=== PATIENT | female | born 1955 ===

== ENCOUNTER 2021-01-12 08:18 | Inpatient (IN) | payer MEDICARE, OTHER ==
[~2021-01-12] VITALS: Ht 157.5 cm; Wt 119.1 kg
[~2021-01-12 08:18] MED LIST: ALBU90OI6; ALBU90OI6 INH; AMLO5 PO; ASPI81CH PO; ATEN50 PO; Ativan0.5 MG SL; Ativan1 MG PO; BUDE6HFA INH; BUSP10; BUSP10 PO; CYCL10 PO; Cardizem CD 12120 MG PO; DILT120; DIPH50 PO; FURO40 PO; Flonase 0.05% N16 GM; Halcion0.25 MG PO; LAVAP17G PO; LEVFLO250 PO; LEVFLO500 PO; LEVSOD150 PO; LISI20; LISI20 PO; LISI5; MELA3 PO; METF500 PO; Metoprolol Tar100 MG PO; NIFE60ER; NIFE60ER PO; NITR.4SL PO; NITR.4SL SL; ONE DAILY FOR1 EAC3 PO; Oxybutynin Chlo10 MG PO; POTA10T PO; POTCHL20ER PO; SERT50; SUDAFED PE PRE1 EAC1; TIOT18; TIOT18 INH; VERA120ERB PO; ZESTORETIC 20-121 EA; Zestril40 MG PO
[2021-01-12 08:50] LABS: BASOPHILS ABSOLUTE AUTO 0.04 K/mm3 (0.00-0.23); BASOPHILS PERCENT AUTO 0 % (0-2); EOSINOPHILS ABSOLUTE AUTO 0.01 K/mm3 (0.00-0.68); EOSINOPHILS PERCENT AUTO 0 % (0-6); Hematocrit 37.7 % (33.0-51.0); Hemoglobin 11.3 g/dL (11.5-16.0); IMMATURE GRAN ABSOLUTE AUTO 0.06 K/mm3 (0.00-0.10); IMMATURE GRAN PERCENT AUTO 1 % (0-1); LYMPHOCYTES ABSOLUTE AUTO 1.39 K/mm3 (0.84-5.20); LYMPHOCYTES PERCENT AUTO 13 % (21-46); MONOCYTES ABSOLUTE AUTO 0.52 K/mm3 (0.16-1.47); MONOCYTES PERCENT AUTO 5 % (4-13); Mean Corpuscular HGB 27.6 pg (26.0-34.0); Mean Corpuscular Volume 92 fL (80-100); Mean Platelet Volume 10.2 fL (9.1-12.4); NEUTROPHILS ABSOLUTE AUTO 8.79 K/mm3 (1.96-9.15); NEUTROPHILS PERCENT AUTO 81 % (41-73); Platelet Count 213 K/mm3 (150-400); RDW Coefficient Variation 16.1 % (11.7-14.2); RDW Standard Deviation 54.4 fL (35.1-46.3); Red Blood Cell Count 4.09 M/mm3 (3.80-5.20); White Blood Cell Count 10.81 K/mm3 (4.00-11.30)
[2021-01-12 08:55] LABS: PO2 Arterial 62.5 mmHg (80-100); pH Blood Arterial 7.36 (7.35-7.45)
[2021-01-12 08:56] LABS: PCO2 Arterial 82.5 mmHg (35-45)
[2021-01-12 09:08] LABS: Alanine Aminotransfer (ALT/SGP 25 U/L (12-78); Albumin, Blood 2.9 g/dL (3.4-5.0); Albumin/Globulin Ratio 0.6 (0.8-1.8); Alk Phos 111 U/L (50-136); Anion Gap 2 mmol/L (6-16); Aspartate Aminotrans (AST/SGOT 19 U/L (12-37); Bilirubin, Total 0.6 mg/dL (0.1-1.0); Blood Urea Nitrogen 13 mg/dL (8-24); Bun/Creatinine Ratio 13.7 (12.0-20.0); CO2, Blood 43 mmol/L (21-32); Calcium, Blood 8.6 mg/dL (8.5-10.1); Chloride, Blood 96 mmol/L (98-108); Creatinine, Blood 0.95 mg/dL (0.40-1.00); Globulin, Blood 5.1 g/dL (2.2-4.0); Glomerular Filtration Rate 59 (60-); Glucose, Blood 159 mg/dL (70-99); Potassium, Blood 3.6 mmol/L (3.5-5.5); Sodium, Blood 141 mmol/L (136-145); Troponin I <0.015 ng/mL (0.000-0.040)
[2021-01-12 09:36] LABS: SARS-Cov-2 (COVID-19) PCR, MMC NEGATIVE (NEGATIVE)
--- NOTE | 2021-01-12 13:17 | NUR ---
PCU ADMIT PT BROUGHT TO PCU-04 BY ESTHER FROM ER @ [facility] 1200. PT A&O X4, SLID OVER FROM [facility] TO PCU BED BY 4 STAFF MEMBERS. PT VSS. SPO2 > 90% ON BIPAP: 09/09, FIO2 60%. RR 20's. MONITOR SHOWING SB, HR 50's. PT REPORTS CP @ HOME THIS AM, RESOLVED @ HOME AFTER 2 NITRO. PT DENIES FURTHER CP OR OTHER PAIN/DISCOMFORT. PT DOES REPORT LEFT FOOT NUMB D/T DIABETES. PT ALSO FURTHER REPORTS HAS NOT BEEN CHECKING BLOOD SUGARS AT HOME OR BEEN TAKING ANY DM MANAGAING MEDICATIONS FOR PAST 1.5 YRS D/T MD STOPPING MEDICATION. PT CBG STABLE ON ARRIVAL.
[2021-01-12 15:28] LABS: PO2 Arterial 69.8 mmHg (80-100); pH Blood Arterial 7.36 (7.35-7.45)
[2021-01-12 15:29] LABS: PCO2 Arterial 82.7 mmHg (35-45)
--- NOTE | 2021-01-12 18:01 | NUR ---
SHIFT SUMMARY PT A&O X4. VSS. MONITOR SHOWING SB, HR 45-50's. SPO2 > 90% ON BIPAP: 09/09, FIO2 60%, TITRATED TO 40% THIS SHIFT. RR 20's. ABG CO2 CRITICALLY HIGH DESPITE PT WEARING BIPAP CONTINUOUSLY. PT REPORTING MOUTH TO BE SORE. MOUTH INSPECTED W/ NO SIGN OF CAUSE. PT NPO. WILL CONTINUE TO MONITOR & PROVIDE CARE UNTIL REPORT OFF TO DAY SHIFT RN.
[2021-01-13 04:16] LABS: BASOPHILS ABSOLUTE AUTO 0.01 K/mm3 (0.00-0.23); BASOPHILS PERCENT AUTO 0 % (0-2); EOSINOPHILS PERCENT AUTO 0 % (0-6); Hematocrit 34.6 % (33.0-51.0); Hemoglobin 10.3 g/dL (11.5-16.0); IMMATURE GRAN ABSOLUTE AUTO 0.04 K/mm3 (0.00-0.10); IMMATURE GRAN PERCENT AUTO 0 % (0-1); LYMPHOCYTES ABSOLUTE AUTO 1.07 K/mm3 (0.84-5.20); LYMPHOCYTES PERCENT AUTO 11 % (21-46); MONOCYTES ABSOLUTE AUTO 0.43 K/mm3 (0.16-1.47); MONOCYTES PERCENT AUTO 4 % (4-13); Mean Corpuscular HGB 27.2 pg (26.0-34.0); Mean Corpuscular HGB Conc 29.8 g/dL (31.5-36.5); Mean Corpuscular Volume 92 fL (80-100); Mean Platelet Volume 10.2 fL (9.1-12.4); NEUTROPHILS ABSOLUTE AUTO 8.37 K/mm3 (1.96-9.15); NEUTROPHILS PERCENT AUTO 84 % (41-73); Platelet Count 190 K/mm3 (150-400); RDW Coefficient Variation 16.2 % (11.7-14.2); RDW Standard Deviation 53.1 fL (35.1-46.3); Red Blood Cell Count 3.78 M/mm3 (3.80-5.20); White Blood Cell Count 9.92 K/mm3 (4.00-11.30)
[2021-01-13 04:23] LABS: Source, Urine Clean Catch
[2021-01-13 04:26] LABS: Appearance, Urine Clear (Clear); Bilirubin, Urine Neg (Neg); Blood, Urine Neg (Neg); Color, Urine Yellow (P-Yellow); Glucose Qualitative, Urine Neg (Neg); Ketones, Urine Neg (Neg); Leukocyte Esterase, Urine Neg (Neg); Nitrite, Urine Neg (Neg); Protein, Urine 1+ (Neg); Specific Gravity, Urine 1.005 (1.003-1.022); Urobilinogen, Urine NORM (Normal)
[2021-01-13 04:42] LABS: Anion Gap 2 mmol/L (6-16); Blood Urea Nitrogen 14 mg/dL (8-24); Bun/Creatinine Ratio 18.4 (12.0-20.0); CO2, Blood 42 mmol/L (21-32); Calcium, Blood 8.5 mg/dL (8.5-10.1); Chloride, Blood 98 mmol/L (98-108); Creatinine, Blood 0.76 mg/dL (0.40-1.00); Glomerular Filtration Rate >60 (60-); Glucose, Blood 143 mg/dL (70-99); Potassium, Blood 3.5 mmol/L (3.5-5.5); Sodium, Blood 142 mmol/L (136-145)
--- NOTE | 2021-01-13 06:16 | NUR ---
SHIFT SUMMARY PT ALERT, ANSWERS QUESTIONS APPROPRIATELY. SOMETIMES USES CALL LIGHT, SOMETIMES CALL OUT WHEN NEEDING SOMETHING. SP02>90% ON BIPAP. PT STARTED NIGHT AT 14/6, 60%. TOWARDS END OF SHIFT, PT DESATTED TO LOW 80'S. INCREASED FI02 TO 70%. PT NOW SATTING 92%. TELEMETRY READS NSR, HR 60'S. PT DENIES PAIN. PT USED BEDPAN TO URINATE MULTIPLE TIMES. NO BM THIS SHIFT. PT C/O OF BEING HUNGRY/WANTING TO EAT. EXPLAINED THAT HER ORDERS ARE FOR HER TO BE NPO. PT SLEPT OFF AND ON T/O SHIFT. CALL LIGHT IN REACH. WILL GIVE REPORT TO ONCOMING NURSE.
[2021-01-13 08:05] LABS: PCO2 Arterial 69.4 mmHg (35-45); PO2 Arterial 70.6 mmHg (80-100); pH Blood Arterial 7.45 (7.35-7.45)
--- NOTE | 2021-01-13 11:00 | NUR ---
PT ALERT AND ORIENTED X3. STATES SHE HAS BEEN HERE FOR 3 DAYS WHEN SHE HAS ONLY BEEN HERE ONE DAY. STATES SHE HAS NUMBNESS/TINGLING IN RIGHT LEG THAT IS NEW. PERRLA. ABLE TO MOVE ALL EXTREMITITES IN BED, BILATERAL GOLF SALES MANAGER STRENGTH. TELE SHOWING SINUS CHAR WITH HR 50-60'S. BP STABLE. DENIES CHEST PAIN/PRESSURE. PER PATIENT HER FEET ARE MORE SWOLLEN THAN NORMAL. PPP. ON BIPAP THIS AM SETTINGS 14/6 AT 60% SATING LOW 90'S. ABLE TO TRANSITION TO HF NASAL CANNULA AT 8L AND SATING LOW 90'S. WEARING BIPAP WHEN SLEEPING. NO COUGH AT THIS TIME. SOB WITH EXERTION. UP TO BSC WITH 1 PERSON ASSIST. ONE BM THIS SHIFT. BOWEL TONES PRESENT. PATIENT STATES HER ABDOMEN IS FEELING BLOATED. ATTENDS IN PLACE. SKIN C/D/I. SCAR ON ABDOMINAL FOLD, HX OF BOWEL RESECTION. IN TO VISIT THIS AFTERNOON. MEDICATIONS UPDATED IN MED REC, PER ASSOCIATE THEATRE PROFESSOR. IV'S FLUSHING WELL AND SALINE LOCKED. ANTIBIOTICS INFUSED. CALL LIGHT IN REACH. WILL CONTINUE TO MONITOR.
[2021-01-13] MEDS ORDERED: LISINOPRIL PO (15:20)
[2021-01-13] MEDS ORDERED: OMEP20ER PO (15:22)
[2021-01-13] MEDS ORDERED: FURO20 PO (15:29)
[2021-01-13] MEDS ORDERED: AMLO10 PO (15:31)
[2021-01-13] MEDS ORDERED: [UNRECOGNIZED DRUG - OTHER] BOTHEARS (15:38)
[2021-01-13] MEDS ORDERED: LEVOTHYROXINE PO (15:41)
[2021-01-13] MEDS ORDERED: GARLIQUE PO (15:44)
[2021-01-13] MEDS ORDERED: PARO20 PO (15:46)
[2021-01-13] MEDS ORDERED: MULTIVITAMIN PO (15:51)
[2021-01-13] MEDS ORDERED: Aspir 8181 MG PO (15:54)
[2021-01-13] MEDS ORDERED: K-Dur20 MEQ PO (15:59)
--- NOTE | 2021-01-13 18:44 | NUR ---
SHIFT SUMMARY: PT REMAINS ON 8L O2 NC SATING LOW 90'S. DESATS WITH ACTIVITY. TELE REMAINS UNCHANGED. BIPAP REMAINS IN ROOM FOR WHEN PATIENT IS SLEEPING. UP TO BSC WITH 1 PERSON ASSIST. USING CALL LIGHT FOR NEEDS. TOLERATING PO INTAKE. SPEECH IN TO SEE PATIENT. SPEECH ORDERS IN PLACE. CALL LIGHT IN REACH. WILL CONTINUE TO MONITOR AND REPORT OFF.
--- NOTE | 2021-01-13 23:41 | NUR ---
THE PATIENT'S BLOOD PRESSURE WAS IN THE 170S AFTER GIVING HER, HER EVENING DOSE OF METROPLOL. DR MANCERA WAS NOTIFED AND A ONE TIME ORDER OF AMLODIPINE WAS ORDERED. WILL CONTINUE TO MONITOR.
[2021-01-14 04:41] LABS: BASOPHILS ABSOLUTE AUTO 0.04 K/mm3 (0.00-0.23); BASOPHILS PERCENT AUTO 0 % (0-2); EOSINOPHILS ABSOLUTE AUTO 0.01 K/mm3 (0.00-0.68); EOSINOPHILS PERCENT AUTO 0 % (0-6); Hematocrit 39.1 % (33.0-51.0); Hemoglobin 11.9 g/dL (11.5-16.0); IMMATURE GRAN ABSOLUTE AUTO 0.03 K/mm3 (0.00-0.10); IMMATURE GRAN PERCENT AUTO 0 % (0-1); LYMPHOCYTES ABSOLUTE AUTO 1.56 K/mm3 (0.84-5.20); LYMPHOCYTES PERCENT AUTO 16 % (21-46); MONOCYTES ABSOLUTE AUTO 0.51 K/mm3 (0.16-1.47); MONOCYTES PERCENT AUTO 5 % (4-13); Mean Corpuscular HGB 27.4 pg (26.0-34.0); Mean Corpuscular HGB Conc 30.4 g/dL (31.5-36.5); Mean Corpuscular Volume 90 fL (80-100); Mean Platelet Volume 10.3 fL (9.1-12.4); NEUTROPHILS ABSOLUTE AUTO 7.54 K/mm3 (1.96-9.15); NEUTROPHILS PERCENT AUTO 78 % (41-73); Platelet Count 219 K/mm3 (150-400); RDW Coefficient Variation 16.5 % (11.7-14.2); RDW Standard Deviation 53.1 fL (35.1-46.3); Red Blood Cell Count 4.34 M/mm3 (3.80-5.20); White Blood Cell Count 9.69 K/mm3 (4.00-11.30)
[2021-01-14 05:15] LABS: Albumin, Blood 2.8 g/dL (3.4-5.0); Anion Gap 5 mmol/L (6-16); Blood Urea Nitrogen 10 mg/dL (8-24); Bun/Creatinine Ratio 13.5 (12.0-20.0); CO2, Blood 39 mmol/L (21-32); Calcium, Blood 8.5 mg/dL (8.5-10.1); Chloride, Blood 97 mmol/L (98-108); Creatinine, Blood 0.74 mg/dL (0.40-1.00); Glomerular Filtration Rate >60 (60-); Glucose, Blood 116 mg/dL (70-99); Phosphorus, Blood 2.2 mg/dL (2.5-4.9); Potassium, Blood 2.6 mmol/L (3.5-5.5); Sodium, Blood 141 mmol/L (136-145)
--- NOTE | 2021-01-14 08:01 | NUR ---
[facility] SUMMARY PATIENT IS RESTING IN BED. BED IS IN LOW POSITION. CALL LIGHT IS IN REACH. NO ACUTE EVENT DURING THE NIGHT. THE PATIENT'S BLOOD PRESSURE WAS ELEVATED AND MD WAS NOTIFIED AND A ONE TIME ORDER WAS PUT IN. THE PATIENT WAS UP TO THE COMMODE EVERY 1-2 HR TO USE THE BATHROOM. PT COMPLAINED OF HEADACHE PRN PAIN MEDICATION WAS GIVEN. THE PATIENT IS ON 6L NC SATURATING ABOVE 92% AND DOING WELL. SHE HAD COUGHED UP TWO SCANT BLOODY SPUTUM DURING THE NIGHT. PATIENT ABLE TO GET UP TO THE BEDSIDE COMMODE. WILL CONTINUE TO MONITOR. REPORT GIVEN TO DAYSHIFT RN.
[2021-01-14 08:32] LABS: PCO2 Venous 55.8 mmHg (38-42)
[2021-01-14 08:33] LABS: Base Excess Venous 19.7 mmol/L
--- NOTE | 2021-01-14 14:20 | NUR ---
Pt. is in bed resting she is fine prayed for her
--- NOTE | 2021-01-14 14:52 | NUR ---
Transfer notes [id number]-Called report to Thang, updated him on pt's status, pt was transfered to room 343 by [employer]/hel[employer] via wheelchair accompanied by pt's spouse. Pt was sent with her belongings.
--- NOTE | 2021-01-14 18:48 | NUR ---
Patient is transfer from PCU to room 343 . She is alert and oriented x3, one person assist with ADLS . Ambulate to bathroom with SBA.Blood sugar was 142 , no insulin given . vital signs are stable. Right upper arm powergluide intact. Denies any pain. Continue on 6 L n/c , no SOB noted. Call light within reach.
--- NOTE | 2021-01-15 04:42 | NUR ---
[employer]ER[employer] NETWORK ARCHITECT SUMMARY ADMITTED FOR SOB/ARF. PT IS FULL CODE. PLAN FOR D/C IN 36 HOURS WITH IMPROVEMENT IN OXYGEN DEMAND. PT RESTING ON 6L BY HUMIDIFED OXYGEN THROUGHOUT THE SHIFT. ATTEMPTED TO HAVE PT SLEEP WITH CPAP BUT PT REFUSED, STATING SHE GETS "CLAUSTROPHOBIC." PT UP TO THE COMMODE FREQUENTLY AND INDEPENDENTLY. NO OTHER CONCERNS THIS SHIFT.
[2021-01-15 04:45] LABS: BASOPHILS ABSOLUTE AUTO 0.03 K/mm3 (0.00-0.23); BASOPHILS PERCENT AUTO 0 % (0-2); EOSINOPHILS ABSOLUTE AUTO 0.02 K/mm3 (0.00-0.68); EOSINOPHILS PERCENT AUTO 0 % (0-6); Hemoglobin 12.7 g/dL (11.5-16.0); IMMATURE GRAN ABSOLUTE AUTO 0.04 K/mm3 (0.00-0.10); IMMATURE GRAN PERCENT AUTO 0 % (0-1); LYMPHOCYTES ABSOLUTE AUTO 1.28 K/mm3 (0.84-5.20); LYMPHOCYTES PERCENT AUTO 14 % (21-46); MONOCYTES ABSOLUTE AUTO 0.61 K/mm3 (0.16-1.47); MONOCYTES PERCENT AUTO 7 % (4-13); Mean Corpuscular HGB 27.4 pg (26.0-34.0); Mean Corpuscular Volume 89 fL (80-100); Mean Platelet Volume 10.1 fL (9.1-12.4); NEUTROPHILS ABSOLUTE AUTO 7.12 K/mm3 (1.96-9.15); NEUTROPHILS PERCENT AUTO 78 % (41-73); Platelet Count 212 K/mm3 (150-400); RDW Coefficient Variation 16.8 % (11.7-14.2); RDW Standard Deviation 53.2 fL (35.1-46.3); Red Blood Cell Count 4.63 M/mm3 (3.80-5.20)
[2021-01-15 05:00] LABS: Albumin, Blood 2.9 g/dL (3.4-5.0); Anion Gap 4 mmol/L (6-16); Blood Urea Nitrogen 8 mg/dL (8-24); Bun/Creatinine Ratio 10.9 (12.0-20.0); CO2, Blood 37 mmol/L (21-32); Calcium, Blood 8.6 mg/dL (8.5-10.1); Chloride, Blood 101 mmol/L (98-108); Creatinine, Blood 0.73 mg/dL (0.40-1.00); Glomerular Filtration Rate >60 (60-); Glucose, Blood 133 mg/dL (70-99); Phosphorus, Blood 3.3 mg/dL (2.5-4.9); Potassium, Blood 2.7 mmol/L (3.5-5.5); Sodium, Blood 142 mmol/L (136-145)
--- NOTE | 2021-01-15 18:43 | NUR ---
Alert and oriented x3 ,able to make needs known. Denies any pain. No SOB, chest pain , headache and dizziness reported. vital signs are stable. One person assist with ADLS. Ambulate to bathroom with SBA. 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 Continue on 3 L n/c , sp02 at 96% Blood glucose has been less than 150 , no insulin required by SS order. Call light within reach.Continue to monitor.
--- NOTE | 2021-01-16 04:56 | NUR ---
END OF SHIFT REPORT: Pt A&Ox4, able to make needs known. No acute evnts overnight. Pt on 3LNC, spO2 <94% No complaints f pain. Some insomnia, medicated per eMAR. No reports of SOB nor disconfort. Pt resting well. Standby assist to BSC. No new complaints, call light within reach, bed in lowest position. Continuing to monitor.
--- NOTE | 2021-01-16 18:25 | NUR ---
Alert and oriented x 3 , Denies any pain , shortness of breath and headache . Tylenol 650 mg was given for joint pain , it was effective. Vital signs are stable. Bilateral Lower edema has improved significantly . Insulin coverage was given per SS order.Continue on Vancomyicn for MRSA . on 3-4 liters N/C , SP02 AT 94-95%, no SOB noted. Call light within reach. Continue to monitor.
[2021-01-16 21:26] LABS: Vancomycin, Trough 17.5 ug/mL (5.0-10.0)
--- NOTE | 2021-01-17 06:08 | NUR ---
END OF SHIFT SUMMARY: Pt experienced SOB with spo2 down to 82% on 5L through CPAP. Switched pt to NC and O2 need up to 9L, sp02 up to 92% on 9L. Pt not in acute distress. Walked pt through some breathing exercises. Pt recovered and feeling better. Still having some desats with activity, but not significantly. C/o Pain in joints, pain relieving ointment ordered and applied, Reports feeling better. Pt up to BSC with standby assist. She is able to voice needs, call light within reach. Bed in lowest position. Continue to monitor.
--- NOTE | 2021-01-17 16:27 | NUR ---
SHIFT SUMMARY PATIENT IS ALERT AND ORIENTATED X4. PATIENT HAS BEEN PLEASENT AND COOPERATIVE WITH CARE. NO ACUTE EVENTS THIS SHIFT. PATIENT IS ON 7 LITERS NASAL CANNULA, PATIENT IS SATTING ABOVE 95% ON. PATIENT HAS POTASSIUM TRENDING DOWNWARD AND HAS POTASSIUM EVERY 2 HRS X3 BAGS. PATIENT CAN ONLY TOLERATE POTASSIUM AT 30ML/HR. NO ACUTE EVENTS THIS SHIFT. PATIENT HAS SHOULDER PAIN OF WHICH ILEANA EATON CREAM IS APPLIED TO SATISFACTION. BED IN LOWEST POSITION. CALL LIGHT IN REACH. WILL CONTINUE TO MONITOR UNTIL SHIFT CHANGE.
[2021-01-17 21:07] LABS: Vancomycin, Trough 17.5 ug/mL (5.0-10.0)
--- NOTE | 2021-01-18 06:35 | NUR ---
patient tolerated k riders with normal saline running concurrently at 75 ml/hr. AM potassium was 2.8. patient states she is not having loose or plentiful stools or having any nausea or vomiting. patient has been getting OOB to bedside commode independently. Anxious about getting home to her who has MESOTHLEIOMA
[2021-01-18 07:27] LABS: Albumin, Blood 2.7 g/dL (3.4-5.0); Anion Gap 4 mmol/L (6-16); Blood Urea Nitrogen 8 mg/dL (8-24); Bun/Creatinine Ratio 9.8 (12.0-20.0); CO2, Blood 35 mmol/L (21-32); Calcium, Blood 8.3 mg/dL (8.5-10.1); Chloride, Blood 103 mmol/L (98-108); Creatinine, Blood 0.81 mg/dL (0.40-1.00); Glomerular Filtration Rate >60 (60-); Glucose, Blood 99 mg/dL (70-99); Phosphorus, Blood 3.2 mg/dL (2.5-4.9); Potassium, Blood 2.9 mmol/L (3.5-5.5); Sodium, Blood 142 mmol/L (136-145)
--- NOTE | 2021-01-18 11:37 | NUR ---
PT REPORTED SHE IS LACTOSE INTOLERENT WITH ONLY MILK. WILL NOTIFY SPORTS ATHLETIC TRAINER/KITCHEN. PT REPORTS SHE GETS GASSY IF SHE DRINKS MILK. SHE CAN HAVE [employer] PRODUCTS IN COOKED FOODS.
--- NOTE | 2021-01-18 18:24 | NUR ---
SHIFT SUMMARY: PT A/O STANDBY ASSIST TO BATHROOM. PLEASANT AND COOPERATIVE T/OUT THE DAY. PT HAD IV KCL AND LEVEL INCREASED TO 3.0. PT COMPLAINED OF BURING WITH INFUSION TO ARM, BUT WITH CONCURRENT ADMINISTRATION OF IV FLUIDS AND ICE PACK WAS ABLE TO TOLERATE. PT REPORTED LOOSE WITH FORMED STOOL MID SHIFT. O2 TITRATED DOWN TO 5 LPM VIA HIGH FLOW NC WITH SATS RANGING T/OUT THE DAY BETWEEN 92-94%. NO OTHER CONCERNS AT THIS TIME.
--- NOTE | 2021-01-19 05:18 | NUR ---
PATIENT ALERT AND ORIENTED X4. PATIENT CONTINUES ON IV VANCOMYCINE. PATIENT COMPLAINED OF BILATERAL SHOULDER PAIN, MUSCLE RUB APPLIED X2 WITH GOOD EFFECT. PATIENT UP TO BSC X2, VOIDED BOTH TIMES LARGE AMOUNT, WITH NO BM. PATIENT DENIES SOB, CHEST PAIN OR ANY ACUTE DISTRESS. WILL CONTINUE TO MONITOR.
[2021-01-19 05:58] LABS: Albumin, Blood 2.9 g/dL (3.4-5.0); Anion Gap 5 mmol/L (6-16); Blood Urea Nitrogen 7 mg/dL (8-24); Bun/Creatinine Ratio 8.7 (12.0-20.0); CO2, Blood 33 mmol/L (21-32); Calcium, Blood 8.7 mg/dL (8.5-10.1); Chloride, Blood 103 mmol/L (98-108); Glomerular Filtration Rate >60 (60-); Glucose, Blood 123 mg/dL (70-99); Phosphorus, Blood 3.8 mg/dL (2.5-4.9); Potassium, Blood 3.1 mmol/L (3.5-5.5); Sodium, Blood 141 mmol/L (136-145)
[2021-01-19] MEDS ORDERED: ALBU2.5V5 INH (13:03)
[2021-01-19] MEDS ORDERED: ZESTRIL40 M1 PO (13:09)
[2021-01-19] MEDS ORDERED: METO50 PO (13:11)
[2021-01-19] MEDS ORDERED: NITR.4SL SL (13:13)
[2021-01-19] MEDS ORDERED: VISBIOME 112.51 EACH PO (13:15)
[2021-01-19] MEDS ORDERED: DOXY100 PO (13:15)
--- NOTE | 2021-01-19 17:03 | NUR ---
dISCHARGE NOTE: PT EDUCATED ON DC INSTRUCTIONS. AND BELONGINGS PACKED UP. PT ESCORTED TO POV VIA WHEELCHAIR BY RETENTION REPRESENTATIVE WITH . PT ORDERS FAXED TO [facility] [place] [facility] SINCE [facility]AF[facility] WAS CLOSED. ADVISED PT THEY CLOSE AT 6 PM. CHERYL FREITAS.
--- NOTE | 2021-01-19 17:06 | NUR ---
PT LEFT DISCHARGE FOLDER AT HOSPITAL. CALL MADE TO HER NUMBER AND HAD TO LEAVE A MESSAGE REQUESTING HER TO COME PICK THEM UP SO SHE HAS HER MEDICATION INSTRUCTIONS. AWAITING RETURN CALL.
== END 2021-01-19 16:13 | disposition home or self-care (01) | DRG 177 ==
LOC: ER 08:18 → ERHOLD 10:50 → PCU 10:50 → MEDS 01-14 15:22
PROVIDERS: Emergency Medicine; Family Medicine; Internal Medicine; Pharmacist; ADMIT Hospitalist
PROC: 3E0234Z Introduction of Serum, Toxoid and Vaccine into Muscle, Percutaneous Approach (ICD-10-PCS; principal; 2021-01-12)
DX: J15.212 Pneumonia due to Methicillin resistant Staphylococcus aureus (principal); J96.01 Acute respiratory failure with hypoxia; I50.33 Acute on chronic diastolic (congestive) heart failure; R65.11 Systemic inflammatory response syndrome (SIRS) of non-infectious origin with acute organ dysfunction; J96.02 Acute respiratory failure with hypercapnia; Z68.41 Body mass index [BMI] 40.0-44.9, adult; J44.0 Chronic obstructive pulmonary disease with (acute) lower respiratory infection; J44.1 Chronic obstructive pulmonary disease with (acute) exacerbation; Z20.822 Contact with and (suspected) exposure to COVID-19; I11.0 Hypertensive heart disease with heart failure; E05.00 Thyrotoxicosis with diffuse goiter without thyrotoxic crisis or storm; E11.9 Type 2 diabetes mellitus without complications; E87.6 Hypokalemia; E66.01 Morbid (severe) obesity due to excess calories; D64.9 Anemia, unspecified; Z96.643 Presence of artificial hip joint, bilateral; Z90.49 Acquired absence of other specified parts of digestive tract; Z98.890 Other specified postprocedural states; Z87.891 Personal history of nicotine dependence; Z79.899 Other long term (current) drug therapy; Z23 Encounter for immunization
CPT/HCPCS: 36415; 36600; 71045; 71046; 74176; 80048; 80053; 80069; 80202; 82803; 82947; 83605; 83735; 83880; 84132; 84145; 84484; 85025; 87040; 87070; 87077; 87147; 87186; 87205; 90686; 92610; 93005; 93010; 93306; 94640; 94660; 94762; 96365; 96368; 96375; 97110; 97162; 97165; 97530; 97535; 99285-25; A9270; C1751; G0008; J0360; J0456; J0696; J1650; J1815; J2930; J3370; J3480; J7050; J7060; U0004

== ENCOUNTER → 2021-10-06 | Outpatient (CLI) | payer MEDICARE, OTHER ==
[~2021-10-06] MED LIST changes: +ALBU2.5V5 INH; +AMLO10 PO; +Aspir 8181 MG PO; +DOXY100 PO; +FURO20 PO; +GARLIQUE PO; +K-Dur20 MEQ PO; +LEVOTHYROXINE PO; +LISINOPRIL PO; +METO50 PO; +MULTIVITAMIN PO; +OMEP20ER PO; +PARO20 PO; +VISBIOME 112.51 EACH PO; +ZESTRIL40 M1 PO; +[UNRECOGNIZED DRUG - OTHER] BOTHEARS
[2021-10-06 20:29] LABS: Microalb/Creat Ratio UR, Rand 15.556 mg/g (0.000-30.000); Microalbumin, Random Urine 18.2 mg/L (0.000-20.000)
== END | disposition home or self-care (01) ==
LOC: LAB SHORT 16:45 → LAB 16:45
PROVIDERS: Physician Assistant
DX: E11.40 Type 2 diabetes mellitus with diabetic neuropathy, unspecified (principal)
CPT/HCPCS: 82043; 82570

== ENCOUNTER → 2021-11-19 | Outpatient (CLI) | payer MEDICARE, OTHER ==
[2021-11-19 20:00] LABS: Bun/Creatinine Ratio 10.7 (12.0-20.0); Calcium, Blood 8.9 mg/dL (8.5-10.1); Creatinine, Blood 1.12 mg/dL (0.40-1.00); Potassium, Blood 3.3 mmol/L (3.5-5.5)
== END | disposition home or self-care (01) ==
LOC: LAB SHORT 15:30
PROVIDERS: Physician Assistant
DX: E87.6 Hypokalemia (principal)
CPT/HCPCS: 80048

== ENCOUNTER → 2022-04-14 | Outpatient (CLI) | payer MEDICARE, OTHER ==
[2022-04-14 18:55] LABS: BASOPHILS ABSOLUTE AUTO 0.06 K/mm3 (0.00-0.23); BASOPHILS PERCENT AUTO 1 % (0-2); EOSINOPHILS ABSOLUTE AUTO 0.05 K/mm3 (0.00-0.68); EOSINOPHILS PERCENT AUTO 0 % (0-6); Hematocrit 44.2 % (33.0-51.0); Hemoglobin 14.1 g/dL (11.5-16.0); IMMATURE GRAN ABSOLUTE AUTO 0.03 K/mm3 (0.00-0.10); IMMATURE GRAN PERCENT AUTO 0 % (0-1); LYMPHOCYTES ABSOLUTE AUTO 1.67 K/mm3 (0.84-5.20); LYMPHOCYTES PERCENT AUTO 14 % (21-46); MONOCYTES ABSOLUTE AUTO 0.51 K/mm3 (0.16-1.47); MONOCYTES PERCENT AUTO 4 % (4-13); Mean Corpuscular HGB 28.6 pg (26.0-34.0); Mean Corpuscular HGB Conc 31.9 g/dL (31.5-36.5); Mean Corpuscular Volume 90 fL (80-100); Mean Platelet Volume 10.1 fL (9.1-12.4); NEUTROPHILS ABSOLUTE AUTO 9.62 K/mm3 (1.96-9.15); NEUTROPHILS PERCENT AUTO 81 % (41-73); Platelet Count 262 K/mm3 (150-400); RDW Coefficient Variation 15.5 % (11.7-14.2); RDW Standard Deviation 51.4 fL (35.1-46.3); Red Blood Cell Count 4.93 M/mm3 (3.80-5.20); White Blood Cell Count 11.94 K/mm3 (4.00-11.30)
[2022-04-14 21:48] LABS: Albumin, Blood 3.7 g/dL (3.4-5.0); Albumin/Globulin Ratio 0.8 (0.8-1.8); Alk Phos 126 U/L (50-136); Anion Gap 2 mmol/L (6-16); Bilirubin, Total 0.4 mg/dL (0.1-1.0); Blood Urea Nitrogen 7 mg/dL (8-24); Bun/Creatinine Ratio 7.9 (12.0-20.0); CHOL/HDL RATIO 2.5; CO2, Blood 34 mmol/L (21-32); Calcium, Blood 9.4 mg/dL (8.5-10.1); Chloride, Blood 105 mmol/L (98-108); Cholesterol 166 mg/dL (50-200); Creatinine, Blood 0.88 mg/dL (0.40-1.00); Globulin, Blood 4.7 g/dL (2.2-4.0); Glomerular Filtration Rate 72 (60-); Glucose, Blood 108 mg/dL (70-99); HDL Cholesterol 67 mg/dL (>39); LDL/HDL RATIO 1.2; Low Density Lipoprotein Chol 78 mg/dL (0-110); Potassium, Blood 3.5 mmol/L (3.5-5.5); Sodium, Blood 141 mmol/L (136-145); Total Protein, Blood 8.4 g/dL (6.4-8.2); Triglycerides 107 mg/dL (30-160); Very Low Density Lipoprot Chol 21 mg/dL (6-32)
[2022-04-14 22:12] LABS: Alanine Aminotransfer (ALT/SGP 21 U/L (12-78); Aspartate Aminotrans (AST/SGOT 14 U/L (12-37)
== END | disposition home or self-care (01) ==
LOC: LAB SHORT 12:00
PROVIDERS: Physician Assistant
DX: E11.40 Type 2 diabetes mellitus with diabetic neuropathy, unspecified (principal)
CPT/HCPCS: 80053; 80061; 83036; 85025

== ENCOUNTER → 2022-04-14 | Outpatient (CLI) | payer MEDICARE, OTHER | LOC: LAB SHORT 16:00 → LAB 16:00 | DX: R35.0 Frequency of micturition (principal) | CPT/HCPCS: 87086 ==

== ENCOUNTER → 2022-07-01 | Outpatient (CLI) | payer MEDICARE, OTHER ==
[2022-07-01 20:09] LABS: Bun/Creatinine Ratio 13.3 (12.0-20.0); Calcium, Blood 9.8 mg/dL (8.5-10.1); Creatinine, Blood 0.83 mg/dL (0.40-1.00); Potassium, Blood 3.5 mmol/L (3.5-5.5)
[2022-07-02 15:55] LABS: Percent Saturation 15.6 % (15.0-50.0)
== END | disposition home or self-care (01) ==
LOC: LAB 16:30 → LAB SHORT 16:30
PROVIDERS: Physician Assistant
DX: E87.6 Hypokalemia (principal); I50.20 Unspecified systolic (congestive) heart failure; Z79.899 Other long term (current) drug therapy
CPT/HCPCS: 80048; 82728; 83540; 83550

== ENCOUNTER → 2022-10-01 | Outpatient (CLI) | payer MEDICARE, OTHER ==
[2022-10-01 20:00] LABS: Albumin, Blood 3.4 g/dL (3.4-5.0); Albumin/Globulin Ratio 0.8 (0.8-1.8); Bilirubin, Total 0.3 mg/dL (0.1-1.0); Bun/Creatinine Ratio 12.3 (12.0-20.0); Calcium, Blood 9.4 mg/dL (8.5-10.1); Creatinine, Blood 0.97 mg/dL (0.40-1.00); Globulin, Blood 4.5 g/dL (2.2-4.0); Total Protein, Blood 7.9 g/dL (6.4-8.2)
== END | disposition home or self-care (01) ==
LOC: LAB SHORT 14:33 → LAB 14:33
PROVIDERS: Family Medicine
DX: E11.51 Type 2 diabetes mellitus with diabetic peripheral angiopathy without gangrene (principal); E11.59 Type 2 diabetes mellitus with other circulatory complications; E87.6 Hypokalemia
CPT/HCPCS: 80053; 83036

== ENCOUNTER → 2022-10-31 | Outpatient (CLI) | payer MEDICARE, OTHER | END | disposition home or self-care (01) | LOC: LAB SHORT 20:40 → LAB 20:40 | DX: H60.92 Unspecified otitis externa, left ear (principal) | CPT/HCPCS: 87070; 87077; 87186; 87205 ==

== ENCOUNTER 2023-03-14 15:44 | Inpatient (IN) | payer MEDICARE, OTHER ==
[2023-03-14] VITALS (27 sets, daily range): BP systolic 109–145; BP diastolic 80–126
[~2023-03-14] VITALS: Ht 170.2 cm; Wt 109.0 kg
[~2023-03-14 15:44] MED LIST changes: +ALBU90OI INH; +ALEN70 PO; -BUDE6HFA INH; +ESCI20 PO; -LEVOTHYROXINE PO; +LEVSOD75 PO; +SPIR25 PO; +SPIRIVA RESPIMAT4 G3 INH; +SYMBICORT 16010.2 GM INH; -TIOT18 INH; +VITAMIN D5000 UNIT PO
[2023-03-14 16:16] LABS: BASOPHILS ABSOLUTE AUTO 0.06 K/mm3 (0.00-0.23); BASOPHILS PERCENT AUTO 0 % (0-2); EOSINOPHILS ABSOLUTE AUTO 0.03 K/mm3 (0.00-0.68); EOSINOPHILS PERCENT AUTO 0 % (0-6); Hematocrit 42.6 % (33.0-51.0); Hemoglobin 13.8 g/dL (11.5-16.0); IMMATURE GRAN PERCENT AUTO 1 % (0-1); LYMPHOCYTES ABSOLUTE AUTO 2.95 K/mm3 (0.84-5.20); LYMPHOCYTES PERCENT AUTO 20 % (21-46); MONOCYTES ABSOLUTE AUTO 0.77 K/mm3 (0.16-1.47); MONOCYTES PERCENT AUTO 5 % (4-13); Mean Corpuscular HGB 29.8 pg (26.0-34.0); Mean Corpuscular HGB Conc 32.4 g/dL (31.5-36.5); Mean Corpuscular Volume 92 fL (80-100); NEUTROPHILS ABSOLUTE AUTO 11.02 K/mm3 (1.96-9.15); NEUTROPHILS PERCENT AUTO 74 % (41-73); Platelet Count 266 K/mm3 (150-400); RDW Coefficient Variation 14.7 % (11.7-14.2); RDW Standard Deviation 49.9 fL (35.1-46.3); Red Blood Cell Count 4.63 M/mm3 (3.80-5.20); White Blood Cell Count 14.93 K/mm3 (4.00-11.30)
[2023-03-14 16:25] LABS: Albumin, Blood 3.4 g/dL (3.4-5.0); Albumin/Globulin Ratio 0.7 (0.8-1.8); Bilirubin, Total 0.5 mg/dL (0.1-1.0); Bun/Creatinine Ratio 24.4 (12.0-20.0); Calcium, Blood 9.4 mg/dL (8.5-10.1); Creatinine, Blood 1.31 mg/dL (0.40-1.00); Globulin, Blood 4.6 g/dL (2.2-4.0); Potassium, Blood 5.4 mmol/L (3.5-5.5)
--- NOTE | 2023-03-14 18:11 | NUR ---
PT ADMITTED TO ICU 3 AT 1750 FROM ER FOR ANGIOEDEMA. PT ARRIVED ON [facility] VENT W RT AND RN. VENT SETTINGS AC/PC 20(26/.70)60%/5. SATS 96%, RESP RATE 20. PT INITIALLY ON PROPOFOL AT 50MCG; PT DID NOT OPEN EYES OR FOLLOW COMMANDS BUT WAS ACTIVELY PULLING TOWARD ETT. DR CARTER CALLED AND FENT 50MCG GIVEN FOR SEDATION ADJUNCT. PT CONT TO PULL TOWARD ETT AND THRASH HEAD, SITTING UP. PROPOFOL INCREASED TO 60MCG W/O GOOD EFFECT. PT THEN BROKE RESTRAINT AND ATTEMPTED TO PULL AT ETT. DR CARTER CALLED AND ATIVAN 2MG GIVEN W GOOD EFFECT. BP STABLE, PT WAS HTN WHILE AGITATED. LUNGS CLEAR. NG CLAMPED. COPIOUS AMTS OF VISCOUS ORAL SECRETIONS DRAINING FROM MOUTH, TONGUE PROTRUDES FROM MOUTH. PT CONTINUES TO WAKE AND PULL ON RESTRAINTS, TURNING HEAD BRISKLY FROM SIDE TO SIDE. DR DOTSON CONSULTED AND CALLED BY SEPARATOR OPERATOR SHELLFISH MEATS.
[2023-03-15] VITALS (94 sets, daily range): BP systolic 112–168; BP diastolic 77–104
[2023-03-15 03:42] LABS: BASOPHILS ABSOLUTE AUTO 0.03 K/mm3 (0.00-0.23); BASOPHILS PERCENT AUTO 0 % (0-2); EOSINOPHILS PERCENT AUTO 0 % (0-6); Hematocrit 38.4 % (33.0-51.0); Hemoglobin 12.9 g/dL (11.5-16.0); IMMATURE GRAN ABSOLUTE AUTO 0.09 K/mm3 (0.00-0.10); IMMATURE GRAN PERCENT AUTO 1 % (0-1); LYMPHOCYTES ABSOLUTE AUTO 0.47 K/mm3 (0.84-5.20); LYMPHOCYTES PERCENT AUTO 3 % (21-46); MONOCYTES ABSOLUTE AUTO 0.05 K/mm3 (0.16-1.47); MONOCYTES PERCENT AUTO 0 % (4-13); Mean Corpuscular HGB 29.9 pg (26.0-34.0); Mean Corpuscular HGB Conc 33.6 g/dL (31.5-36.5); Mean Corpuscular Volume 89 fL (80-100); Mean Platelet Volume 9.8 fL (9.1-12.4); NEUTROPHILS PERCENT AUTO 96 % (41-73); Platelet Count 230 K/mm3 (150-400); RDW Coefficient Variation 14.7 % (11.7-14.2); RDW Standard Deviation 47.9 fL (35.1-46.3); Red Blood Cell Count 4.31 M/mm3 (3.80-5.20); White Blood Cell Count 17.04 K/mm3 (4.00-11.30)
[2023-03-15 03:55] LABS: International Normalized Ratio 0.98; Prothrombin Time Results 10.3 Sec (9.7-11.5)
[2023-03-15 04:00] LABS: Albumin, Blood 3.4 g/dL (3.4-5.0); Albumin/Globulin Ratio 0.8 (0.8-1.8); Bilirubin, Total 0.5 mg/dL (0.1-1.0); Bun/Creatinine Ratio 23.9 (12.0-20.0); Calcium, Blood 9.3 mg/dL (8.5-10.1); Creatinine, Blood 1.34 mg/dL (0.40-1.00); Globulin, Blood 4.5 g/dL (2.2-4.0); Magnesium, Blood 2.1 mg/dL (1.6-2.4); Phosphorus, Blood 1.5 mg/dL (2.5-4.9); Potassium, Blood 5.4 mmol/L (3.5-5.5); Total Protein, Blood 7.9 g/dL (6.4-8.2)
--- NOTE | 2023-03-15 06:46 | NUR ---
SHIFT SUMMARY PT DIFFICULT TO SEDATE, PROPOFOL AND PRECEDEX INFUSING AT HIGH DOSES TO ACHIEVE ADEQUATE SEDATION. ABLE TO START TITRATING SEDATION DOWN SLOWLY THIS AM. SR, BP WNL. VENT AC/PC RATE 20, VT 500'S, PEEP 5, FIO2 50% TO MAINTAIN O2 SAT > 94%. NGT IN PLACE TO LIS. NO BM THIS SHIFT. TEMP PROBE ARNOLD TO GRAVITY, PATENT AND DRAINING CLEAR YELLOW URINE. SKIN INTACT. PIV X2, LEFT HAND INFUSING AND WITHDRAWING BLOOD. LEFT AC/FIELD START SL, FLUSHES BUT DOES NOT WITHDRAW BLOOD. ENCOURAGED TO GO HOME TO REST, REASSURED THAT HE WILL BE CONTACTED WITH ANY CHANGES. JOSEPHINE COMPLETED ADMISSION HISTORY VIA PHONE. TONGUE SWELLING DECREASING. POC ONGOING.
--- NOTE | 2023-03-15 07:00 | NUR ---
ASSUMPTION OF CARE PT RECEIVING PROPOFOL 60MCG/KG/MIN AND PRECEDEX 0.5MCG/KG/HR. SHE IS INTUBATED WITH VENT SETTINGS AC/VC 20/500/5/50%. OGT TO LIS. NSR ON MONITOR WITH RATE IN 60S. BP STABLE. TEMP ARNOLD PATENT AND DRAINING TO GRAVITY. CORE TEMP 100.4. BLANKETS REMOVED AND FAN APPLIED. SEE SHIFT ASSESSMENT.
[2023-03-15] MEDS ORDERED: POTCHL20ER PO (18:06)
--- NOTE | 2023-03-15 18:19 | NUR ---
SHIFT SUMMARY PT RECEIVING PROPOFOL 20MCG/KG/MIN AND LR 125ML/HR. PRECEDEX ON STANDBY. SHE REMAINS INTUBATED WITH VENT SETTINGS AC/VC 20/500/5/40%. SHE OCCASIONALLY OPENS EYES AND FOLLOWS SIMPLE COMMANDS. COUGH/GAG INTACT. SHE HAS MODERATE AMOUNT OF GUERRA/PINK ETT OUTPUT. NGT TO LIS. TONGUE REMAINS SWOLLEN BUT HAS IMPROVED THROUGHOUT THE DAY. SINUS CHAR ON MONITOR WITH RATE IN 40S-50S. PRECEDEX HAS BEEN OFF FOR SEVERAL HOURS. SBP 130S-160S. TEMP ARNOLD PATENT AND DRAINING TO GRAVITY. URINE IS YELLOW/GREEN. MENDY AT BEDSIDE THIS AFTERNOON AND UPDATED ON PT CONDITION. MED LIST OBTAINED FROM PHARMACY AND UPDATED IN CHART.
--- NOTE | 2023-03-15 20:57 | NUR ---
ASSUMED CARE OF PT AT 1900 BEDSIDE REPORT RECEIVED FROM HARPREET BARRY. PT IS RESTING ON PROPOFOL, OPENS EYES TO VOICE, FOLLOWS COMMANDS. SB, PRECEDEX OFF FOR SEVERAL HOURS, BP STABLE. VENT SETTINGS ARE UNACHANGED TODAY WITH THE EXCEPTION OF FIO2 TITRATED DOWN TO 40%. LUNGS CTA, MOUTH SWELLING DECREASING. NGT TO LIS, NO TF STARTED. PLAN TO START TF TOMORROW AFTER DIETARY CONSULT. TEMP PROBE ARNOLD TO GRAVITY DRAINING CLEAR YELLOW URINE. SKIN INTACT, REPOSITION EVERY 2 HOURS TO MAINTAIN SKIN INTEGRITY AND ENSURE COMFORT. PIV X2 TO RIGHT ARM, BOTH FLUSH WELL. NO FAMILY AT BEDISDE. CALLED AND LEFT MESSAGE WITH UPDATE ON PT CONDITION. POC ONGOING.
[2023-03-16] VITALS (64 sets, daily range): BP systolic 98–167; BP diastolic 51–132
[2023-03-16 04:07] LABS: BASOPHILS ABSOLUTE AUTO 0.02 K/mm3 (0.00-0.23); BASOPHILS PERCENT AUTO 0 % (0-2); EOSINOPHILS PERCENT AUTO 0 % (0-6); Hematocrit 36.1 % (33.0-51.0); Hemoglobin 12.3 g/dL (11.5-16.0); IMMATURE GRAN ABSOLUTE AUTO 0.13 K/mm3 (0.00-0.10); IMMATURE GRAN PERCENT AUTO 1 % (0-1); LYMPHOCYTES ABSOLUTE AUTO 0.44 K/mm3 (0.84-5.20); LYMPHOCYTES PERCENT AUTO 3 % (21-46); MONOCYTES ABSOLUTE AUTO 0.39 K/mm3 (0.16-1.47); MONOCYTES PERCENT AUTO 2 % (4-13); Mean Corpuscular HGB 29.8 pg (26.0-34.0); Mean Corpuscular HGB Conc 34.1 g/dL (31.5-36.5); Mean Corpuscular Volume 87 fL (80-100); Mean Platelet Volume 10.1 fL (9.1-12.4); NEUTROPHILS ABSOLUTE AUTO 16.95 K/mm3 (1.96-9.15); NEUTROPHILS PERCENT AUTO 95 % (41-73); Platelet Count 229 K/mm3 (150-400); RDW Coefficient Variation 15.2 % (11.7-14.2); RDW Standard Deviation 48.8 fL (35.1-46.3); Red Blood Cell Count 4.13 M/mm3 (3.80-5.20); White Blood Cell Count 17.93 K/mm3 (4.00-11.30)
[2023-03-16 04:31] LABS: Albumin, Blood 2.8 g/dL (3.4-5.0); Albumin/Globulin Ratio 0.7 (0.8-1.8); Bilirubin, Total 0.5 mg/dL (0.1-1.0); Bun/Creatinine Ratio 26.4 (12.0-20.0); Calcium, Blood 8.6 mg/dL (8.5-10.1); Creatinine, Blood 1.21 mg/dL (0.40-1.00); Magnesium, Blood 2.1 mg/dL (1.6-2.4); Phosphorus, Blood 4.1 mg/dL (2.5-4.9); Potassium, Blood 4.5 mmol/L (3.5-5.5); Total Protein, Blood 6.8 g/dL (6.4-8.2)
--- NOTE | 2023-03-16 06:37 | NUR ---
SHIFT SUMMARY PT WAS INTERMITTENTLY TEARFUL AND SCARED, NOT VENT COMPLIANT, TITRATED SEDATION UP TO ACHIEVE VENT COMPLIANCE. FOLLOWS COMMANDS WHEN AWAKE, NODS APPROPRIATELY. SB, BP STABLE. VENT SETTINGS UNCHANGED. SUCTIONED MODERATE YELLOW GUERRA SECRETIONS FROM MOUTH AND NOSE. NGT IN PLACE TO LIS. NO BM. ARNOLD TO GRAVITY PATENT AND DRAINING CLEAR YELLOW URINE. SKIN INTACT. TURNED EVERY 2 HOURS TO MAINTAIN SKIN INTEGRITY. PT DENIES PAIN. PIV X2 INFUSING, FLUSH WELL. NO FAMILY AT BEDSIDE. PHONE UPDATE PROVIDED TO . POC ONGOING.
--- NOTE | 2023-03-16 07:00 | NUR ---
ASSUMPTION OF CARE PT RECEIVING PROPOFOL 40MCG/KG/MIN. SHE REMAINS INTUBATED WITH VENT SETTINGS AC/VC 20/480/5/40%. PROPOFOL TITRATED TO 20MCG/KG/MIN, PT AWAKE AND FOLLOWING COMMANDS. SHE IS ABLE TO COMMUNICATE BY NODDING SHAKING HEAD AND WRITING ON PAPER. PROVIDED EDUCATION REGARDING DISCONTINUING SOFT WRIST RESTRAINTS, PT NODS HEAD "YES" WHEN ASKED IF SHE UNDERSTANDS. PT REPORTS FEELING ANXIOUS AND SCARED, MEDICATED PER EMAR. SHE HAS COPIOUS AMOUNTS OF CLEAR ORAL SECRETIONS, AND MODERATE AMOUNT OF THIN CLEAR AND RED ETT SECRETIONS. SHE OCCASIONALLY HAS BROWN NASAL SECRETIONS. NGT TO LIS WITH SMALL AMOUNT OF OUTPUT. SINUS RHTYHM ON MONITOR WITH RATE IN 90S-120S AND BP STABLE. ARNOLD PATENT AND DRAINING TO GRAVITY. PT IS AFEBRILE. PT REQUESTING TO COME IN. CARLY NOTIFIED VIA TELEPHONE.
--- NOTE | 2023-03-16 14:11 | NUR ---
Pt. is awake in bed when she welcomes my visit. Pt. is pleasant. Spouse Phil is present at bedside. Facilitated a short life review. Pt. displays evidence of engagement and awareness, and spouse displays evidence of being supportive. Prayed with Pt. Pt. and spouse both verbalize gratitude for the spiritual care visit and welcome this side panel hanger to return. Pt. verbalized that her spouse would try to attend Mass tomorrow and personally request that father Sergo visit.
--- NOTE | 2023-03-16 14:34 | NUR ---
UPDATE SEDATION OFF. PT IS AWAKE, COMMUNICATING BY WRITING AND USING PRINTED COMMUNICATION BOARD. PT FOLLOWING ALL COMMANDS. SHE CONTINUES TO HAVE A LARGE AMOUNT OF ORAL SECRETIONS DUE TO GAGGING. PT EVALUATED BY REAL ESTATE MANAGER AND EXTUBATED AT 1040. PT PLACED ON BASELINE 3.5L. SPO2 83-85%, TITRATED O2 TO 8L TO MAINTAIN SPO2 >90%. PT REPORTS NOT FEELING SOB. PT USES YANKEUR INDEPENDENTLY. PT HAS VERY PLEASANT AFFECT, IMMEDIATELY TALKING ABOUT HER FAMILY AND EXPECTED GREAT GRANDCHILDREN. PT CONCERNED REGARDING CODE STATUS. SHE STS SHE BELIEVES SHE HAS A POLST THAT STS DNR. SHE VERBALIZES SHE WOULD LIKE HER POLST TO STATE FULL CODE. PER POLST REGISTRY, THERE IS NO POLST ON FILE. PALLIATIVE CARE ORDER PLACED TO ASSIST PT WITH COMPLETING FORMS. CARLY AT BEDSIDE AND UPDATED.
--- NOTE | 2023-03-16 15:41 | NUR ---
UPDATE PT IS A&OX3, HAS MOMENTS OF CONFUSION BUT REORIENTS QUICKLY AND ANXIOUS AT TIMES. SHE CONTINUES TO USE YANKEUR, ADJUST BED AND USE CALL LIGHT APPROPRIATELY. SHE IS ON 8L HFNC AND TOLERATING WELL WITH SPO2 >90%. OFFERED BEDSIDE SWALLOW. PT REPORTS FEELING AFRAID OF ATTEMPTING SWALLOW EVAL AND WOULD LIKE TO WAIT. SHE REPORTS A HEADACHE AND MILD TONGUE "TINGLING". TONGUE DOES NOT APPEAR ENLARGED AND PT SEEN BY DENTAL HYGIENIST THIS AFTERNOON. PT REQUESTS TO REST. SINUS RHYTHM ON MONITOR WITH RATE IN 80S, BP STABLE WITH MAP >65. ARNOLD PATENT AND DRAINING TO GRAVITY. AT BEDSIDE FOR A COUPLE HOURS AND UPDATED ON PT STATUS.
--- NOTE | 2023-03-16 19:22 | NUR ---
SHIFT SUMMARY PT REMAINS ON 8L HFNC. SHE IS A&OX3 WITH MOMENTS OF CONFUSION. SHE REPORTS THIS IS ABNORMAL FOR HER AND THINKS IT MAY BE FROM THE MEDICATION. SHE HAS MILD R FACIAL SWELLING. SHE HAS EQUAL FACIAL SENSATION AND TONGUE DOES NOT APPEAR SWOLLEN. C/O HEADACHE, MEDICATED PER EMAR. SHE PASSED HER BEDSIDE SWALLOW WITHOUT DIFFICULTY. SHE CONTINUES TO HAVE A PRODUCTIVE COUGH AND LARGE AMOUNTS OF ORAL SECRETIONS. SHE USES THE YANKEUR INDEPENDENTLY. LUNGS ARE CLEAR, DIMINISHED IN BASES. OCCASIONAL RHONCHI. SHE DENIES GI UPSET AND REPORTS FEELING HUNGRY. PROVIDED BROTH AND PUDDING. ARNOLD PATENT AND DRAINING TO GRAVITY.
--- NOTE | 2023-03-16 19:27 | NUR ---
CONVERSATION REGARDING HOME PT REPORTS HER AND HER LIVE ALONE. SHE STS SHE BECOMES SOB WITH EXCERTION AND MAINLY SITS IN A CHAIR AT HOME. HER CARLY STILL DRIVES AND AMBULATES WELL WITH A WALKER. SHE REPORTS THEIR CHILDREN DO NOT ASSIST THEM IN ANY WAY AND SHE HAS BEEN CONSIDERING LOOKING FOR A CAREGIVER. WHEN ASKED HOW MUCH ASSISTANCE THEY MIGHT NEED, SHE STS "WELL QUITE A BIT". SHE STS SHE IS UNSURE HOW TO HIRE A CAREGIVER AND WOULD LIKE ASSISTANCE WITH THE PROCESS.
--- NOTE | 2023-03-16 20:14 | NUR ---
ASSUMPTION OF CARE REPORT RECEIVED FROM DAY SHIFT RN. PT RESTING IN BED, ALERT AND ORIENTED. PT HAS PERIODS OF CONFUSION BUT IS EASILY REDIRECTED. PT ANXIOUS AT TIMES. COMMUNICATES APPROPRIATELY, ABLE TO MAKE NEEDS KNOWN. PT MOVES ALL EXTREMITIES EQUALLY BILATERALLY. HR 80-90'S NSR, MAP >65. PT ON 8 L HFNC, OXYGEN SATURATION >95%. PT HAS MODERATE AMOUNTS OF ORAL SECRETIONS, SELF SUCTIONS. PT DENIES PAIN OR SOB. ARNOLD PATENT DRAINING TO GRAVITY. PIV TO LEFT WRIST SL. BED IN LOWEST POSITION, CALL LIGHT WITHIN REACH, CARE CONTINUES.
[2023-03-16] MEDS ORDERED: MELATONIN5 M1 PO (23:03)
[2023-03-17] VITALS (14 sets, daily range): BP systolic 129–149; BP diastolic 76–95
--- NOTE | 2023-03-17 02:07 | NUR ---
PT UPDATE NO ORDER FOR ARNOLD NOTED. ARNOLD REMOVED, PUREWICK PLACED.
[2023-03-17 03:25] LABS: BASOPHILS ABSOLUTE AUTO 0.03 K/mm3 (0.00-0.23); BASOPHILS PERCENT AUTO 0 % (0-2); EOSINOPHILS PERCENT AUTO 0 % (0-6); Hematocrit 36.4 % (33.0-51.0); IMMATURE GRAN ABSOLUTE AUTO 0.17 K/mm3 (0.00-0.10); IMMATURE GRAN PERCENT AUTO 1 % (0-1); LYMPHOCYTES ABSOLUTE AUTO 1.12 K/mm3 (0.84-5.20); LYMPHOCYTES PERCENT AUTO 5 % (21-46); MONOCYTES ABSOLUTE AUTO 1.23 K/mm3 (0.16-1.47); MONOCYTES PERCENT AUTO 6 % (4-13); Mean Corpuscular HGB 29.8 pg (26.0-34.0); Mean Corpuscular Volume 90 fL (80-100); Mean Platelet Volume 10.1 fL (9.1-12.4); NEUTROPHILS ABSOLUTE AUTO 19.07 K/mm3 (1.96-9.15); NEUTROPHILS PERCENT AUTO 88 % (41-73); Platelet Count 212 K/mm3 (150-400); RDW Coefficient Variation 15.4 % (11.7-14.2); RDW Standard Deviation 51.3 fL (35.1-46.3); Red Blood Cell Count 4.03 M/mm3 (3.80-5.20); White Blood Cell Count 21.62 K/mm3 (4.00-11.30)
[2023-03-17 03:47] LABS: Albumin, Blood 2.9 g/dL (3.4-5.0); Albumin/Globulin Ratio 0.7 (0.8-1.8); Bilirubin, Total 0.6 mg/dL (0.1-1.0); Bun/Creatinine Ratio 26.7 (12.0-20.0); Calcium, Blood 8.5 mg/dL (8.5-10.1); Creatinine, Blood 1.31 mg/dL (0.40-1.00); Potassium, Blood 4.4 mmol/L (3.5-5.5); Total Protein, Blood 6.9 g/dL (6.4-8.2)
--- NOTE | 2023-03-17 05:37 | NUR ---
SHIFT SUMMARY PT RESTING IN BED, ALERT AND ORIENTED. PT COMMUNICATES APPROPRIATELY, PT HAS PERIODS OF CONFUSION BUT IS EASILY REDIRECTABLE, PT ALSO ANXIOUS AT TIMES, MEDICATED PER EMAR. PT USES CALL LIGHT, CONTROLS BED AND SELF SUCTIONS. PT ABLE TO MAKE NEEDS KNOWN, MOVES ALL EXTREMITIES EQUALLY BILATERALLY. PT HAS COMPLAINED OF PERSISITENT HEADACHE THIS SHIFT, TMAX OF 100.6, MEDICATED WITH TYLENOL PER EMAR. HR 60-80'S NSR, MAP >65, SBP 120-140'S. PT ON 8LPM VIA HFNC, OXYGEN SATURATION >90% PT CONTINUES TO HAVE A PRODUCTIVE COUGH, SELF SUCTIONS. PT DENIES CP OR SOB. NO BM THIS SHIFT. PUREWICK IN PLACE DRAINING YELLOW URINE. PIV IN PLACE TO LEFT FOREARM, SL. BED IN LOWEST POSITION, CALL LIGHT WITHIN REACH. CARE CONTINUES.
--- NOTE | 2023-03-17 10:39 | NUR ---
Spiritual Care Visit. Pt. is awake in bed and welcomes my visit. Pt. is pleasant, but displays some evidence of anxiety. Pt. verbalized her concerns about her spouses ability to care for himself and their home. Listened with empathy and a careing presence. A life review is facilitated. Pt. requested getting her spouses phone number so she could contact him. Prayed with Pt. Pt. verbalized gratitude for the spiritual care visit.
--- NOTE | 2023-03-17 18:31 | NUR ---
SUMMARY PT A/O X4 TODAY. USES CALL LIGHT APPROPRIATELY. USES YANKOUR TO SUCTION SPUTUM INDEP. WEAK LE'S 2 PERSON ASSIST TO RECLINER CHAIR TODAY. SAT UP IN RECLINER MOST OF THE DAY AND IS ABLE TO SHIFT HIPS AND PUT LEGS OF RECLINER UP AND DOWN. PT/OT ORDERED. GETS SOB WITH EXERTION. ON 7L HFNC WITH SPO2 90-92%. PT COUGHING UP GUERRA SPUTUM. CXR DONE TODAY AND ABX STARTED. PT HAD AN EPISODE WHERE SHE VOMITTED UP HER WATER BUT WAS ABLE TO KEEP FOOD DOWN. ZOFRAN GIVEN. USING PUREWICK FOR URINE MANAGEMENT D/T WEAKNESS. TRANSFERING TO MEDICAL FLOOR ROOM 309.
--- NOTE | 2023-03-17 23:21 | NUR ---
PT ARRIVED TO THE UNIT, AT 1900. PT CALM AND COOPERATIVE WITH CARE PROVIDED. PT A&O x4, VSS, AFEBRILE. PT ON 6L VIA NC, 92% OXYGEN SATURATION. PT ADMITTED FOR ANGIOEDEMA. PT HAD AN ALLERGIC REACTION TO LISINOPRIL, CAUSING PT'S TONGUE TO SWELL. SUCTION SET UP AT BEDSIDE, PT ABLE TO SUCTION HERSELF. PRN MEDICATION APAP AND IV ATIVAN GIVEN WITH GOOD RESULTS. CALL LIGHT WITHIN REACH, WCTM.
[2023-03-18 02:27] VITALS: BP 136/86
[2023-03-18 04:57] LABS: BASOPHILS ABSOLUTE AUTO 0.03 K/mm3 (0.00-0.23); BASOPHILS PERCENT AUTO 0 % (0-2); EOSINOPHILS ABSOLUTE AUTO 0.11 K/mm3 (0.00-0.68); EOSINOPHILS PERCENT AUTO 1 % (0-6); Hematocrit 36.3 % (33.0-51.0); Hemoglobin 11.6 g/dL (11.5-16.0); IMMATURE GRAN ABSOLUTE AUTO 0.16 K/mm3 (0.00-0.10); IMMATURE GRAN PERCENT AUTO 1 % (0-1); LYMPHOCYTES ABSOLUTE AUTO 1.21 K/mm3 (0.84-5.20); LYMPHOCYTES PERCENT AUTO 6 % (21-46); MONOCYTES PERCENT AUTO 5 % (4-13); Mean Corpuscular HGB 29.2 pg (26.0-34.0); Mean Corpuscular Volume 91 fL (80-100); Mean Platelet Volume 10.3 fL (9.1-12.4); NEUTROPHILS PERCENT AUTO 88 % (41-73); Platelet Count 189 K/mm3 (150-400); RDW Coefficient Variation 15.2 % (11.7-14.2); RDW Standard Deviation 50.8 fL (35.1-46.3); Red Blood Cell Count 3.97 M/mm3 (3.80-5.20); White Blood Cell Count 21.21 K/mm3 (4.00-11.30)
[2023-03-18 05:26] LABS: Bun/Creatinine Ratio 27.6 (12.0-20.0); Calcium, Blood 8.3 mg/dL (8.5-10.1); Creatinine, Blood 1.23 mg/dL (0.40-1.00); Potassium, Blood 4.5 mmol/L (3.5-5.5)
[2023-03-18 08:23] VITALS: BP 139/100
[2023-03-18 15:27] VITALS: BP 141/94
--- NOTE | 2023-03-18 17:24 | NUR ---
"Spiritual Care Visit | Nurse Request Pt. is sitting up in a chair when she welcomes my visit. Spouse is present and sitting on the side of her bed. Pt. is pleasant and gives a verbal update on her progress through the day. Listen with empathy and interest. Seek to normalize the Pt. experience. Prayed with Pt. and spouse. Pt. verbalized genuine gratitude for the supportive visit and welcomed this waiter/waitress third class to return."
--- NOTE | 2023-03-18 18:33 | NUR ---
SHIFT SUMMARY: PT A&O X4. PLEASANT AND COOPERATIVE. PT HAD PT/OT EVAL THIS SHIFT. SB ASSIST W/ FWW. PT REMAINS ON 6L MAINTAINING SATS >90%. PT BEGAN VOMITING THIS AFTERNOON. ZOFRAN PROVIDED PER EMAR. PT ABLE TO SUCTION SELF. PUREWICK IN PLACE. VANCO STARTED THIS EVENING W/O COMPLICATIONS. CALL LIGHT IN REACH. BED IN LOWEST POSITION.
[2023-03-18 20:33] VITALS: BP 143/90
[2023-03-19 02:42] VITALS: BP 105/75
--- NOTE | 2023-03-19 02:57 | NUR ---
PT A&O x4, VSS, AFEBRILE. PT KIND AND COOPERATIVE WITH CARE PROVIDED. PT USES THE SUCTION THAT IS SET UP AT BEDSIDE. PT EXPERIENCED SOB, WITH COUGHING EPISODES. PT RECEIVED BREATHING TREATMENTS x2 OVERNIGHT. PT CONTINUES TO STAY ON 6L VIA NC. PRN IV ATIVAN, WAS EFFECTIVE, GIVEN FOR ANXIETY. PT ABLE TO MAKE NEEDS KNOWN, CALL LIGHT WITHIN REACH, WCTM.
[2023-03-19 06:28] LABS: BASOPHILS ABSOLUTE AUTO 0.03 K/mm3 (0.00-0.23); BASOPHILS PERCENT AUTO 0 % (0-2); EOSINOPHILS ABSOLUTE AUTO 0.02 K/mm3 (0.00-0.68); EOSINOPHILS PERCENT AUTO 0 % (0-6); Hematocrit 34.1 % (33.0-51.0); Hemoglobin 10.8 g/dL (11.5-16.0); IMMATURE GRAN ABSOLUTE AUTO 0.17 K/mm3 (0.00-0.10); IMMATURE GRAN PERCENT AUTO 1 % (0-1); LYMPHOCYTES PERCENT AUTO 8 % (21-46); MONOCYTES ABSOLUTE AUTO 1.04 K/mm3 (0.16-1.47); MONOCYTES PERCENT AUTO 6 % (4-13); Mean Corpuscular HGB 29.2 pg (26.0-34.0); Mean Corpuscular HGB Conc 31.7 g/dL (31.5-36.5); Mean Corpuscular Volume 92 fL (80-100); NEUTROPHILS ABSOLUTE AUTO 15.53 K/mm3 (1.96-9.15); NEUTROPHILS PERCENT AUTO 85 % (41-73); Platelet Count 188 K/mm3 (150-400); RDW Coefficient Variation 15.1 % (11.7-14.2); RDW Standard Deviation 51.5 fL (35.1-46.3); White Blood Cell Count 18.29 K/mm3 (4.00-11.30)
[2023-03-19 06:55] LABS: Bun/Creatinine Ratio 27.6 (12.0-20.0); Calcium, Blood 8.2 mg/dL (8.5-10.1); Creatinine, Blood 1.16 mg/dL (0.40-1.00); Potassium, Blood 4.5 mmol/L (3.5-5.5)
[2023-03-19 07:39] VITALS: BP 121/80
--- NOTE | 2023-03-19 12:37 | NUR ---
COUGHING FIT THIS AM PT HAD A COUGHING FIT THIS AM AT APPROX 09:05. PT HAD A MODERATE AMOUNT OF BLOOD COMING OUT OF THE NARES AND MOUTH. AT BEDSIDE AFTER FIT AND WAS NOTIFIED OF COUGHING FIT. PER , O2 TO BE HUMIDIFIED AND CHEST CT ORDERED.
--- NOTE | 2023-03-19 14:40 | NUR ---
Spiritual Care Visit. Pt. had just returned from a CT scan, was awake in bed when she welcomed my visit. Pts. spouse is at bedside. Facilitated a life review wiht a focus on the Pts. most recent health journey. Spouse displays evidence of being supportive. Pt. displays evidence of awareness, and seeks spiritual input and prayer. Prayed with Pt. Both Pt. and spouse verbalize gratitiude for the spiritual care visit. it is possible that this Pt. might ask for spiritual care over the weekend.
[2023-03-19 16:06] VITALS: BP 140/85
[2023-03-19 17:38] LABS: Hematocrit 37.1 % (33.0-51.0); Hemoglobin 11.6 g/dL (11.5-16.0)
--- NOTE | 2023-03-19 17:41 | NUR ---
SHIFT SUMMARY PT A&OX4, VSS, ON 5L O2, AMB W/ SBA AND FWW, TOLERATING PO, AND DENIED PAIN. PT HAD COUGHING THIS AM, SEE PREVIOUS NOTE. PT CONT TO COUGH SCANT AMOUNT OF BLOOD, SUCTION AT BEDSIDE PER PT REQUEST. HEPARIN HELD THIS AM AND H&H LAB ORDERED. PT USED PUREWICK FOR MOST OF SHIFT AND THEN BEGAN TO USE BATHROOM TOWARDS END OF SHIFT AND TOLERATED IT WELL. CHEST CT DONE THIS SHIFT, SEE CT REPORT. CALL LIGHT WITHIN REACH AND PT ABLE TO MAKE NEEDS KNOWN.
[2023-03-19 20:31] VITALS: BP 149/91
--- NOTE | 2023-03-20 04:19 | NUR ---
SHIFT SUMMARY PT GIVEN ATIVAN LAST NIGHT FOR SEVERE ANXIETY ATTACK. PT WAS HAVING DIFFICULTY BREATHING AND WAS CRYING AND UPSET. PT CALMED AFTER ATIVAN GIVEN. PT HAS BEEN ASLEEP OFF AND ON THIS SHIFT. PT HAS NO COMPLAINTS AT THIS TIME. PT HAS CALL LIGHT WITHIN HER REACH.
[2023-03-20 05:20] LABS: BASOPHILS ABSOLUTE AUTO 0.03 K/mm3 (0.00-0.23); BASOPHILS PERCENT AUTO 0 % (0-2); EOSINOPHILS ABSOLUTE AUTO 0.02 K/mm3 (0.00-0.68); EOSINOPHILS PERCENT AUTO 0 % (0-6); Hematocrit 36.3 % (33.0-51.0); Hemoglobin 11.5 g/dL (11.5-16.0); IMMATURE GRAN ABSOLUTE AUTO 0.22 K/mm3 (0.00-0.10); IMMATURE GRAN PERCENT AUTO 1 % (0-1); LYMPHOCYTES ABSOLUTE AUTO 1.36 K/mm3 (0.84-5.20); LYMPHOCYTES PERCENT AUTO 8 % (21-46); MONOCYTES ABSOLUTE AUTO 0.88 K/mm3 (0.16-1.47); MONOCYTES PERCENT AUTO 5 % (4-13); Mean Corpuscular HGB 29.6 pg (26.0-34.0); Mean Corpuscular HGB Conc 31.7 g/dL (31.5-36.5); Mean Corpuscular Volume 94 fL (80-100); Mean Platelet Volume 10.2 fL (9.1-12.4); NEUTROPHILS ABSOLUTE AUTO 14.38 K/mm3 (1.96-9.15); NEUTROPHILS PERCENT AUTO 85 % (41-73); Platelet Count 196 K/mm3 (150-400); RDW Coefficient Variation 14.9 % (11.7-14.2); RDW Standard Deviation 51.3 fL (35.1-46.3); Red Blood Cell Count 3.88 M/mm3 (3.80-5.20); White Blood Cell Count 16.89 K/mm3 (4.00-11.30)
[2023-03-20 05:35] LABS: Bun/Creatinine Ratio 26.5 (12.0-20.0); Calcium, Blood 8.8 mg/dL (8.5-10.1); Creatinine, Blood 1.17 mg/dL (0.40-1.00); Potassium, Blood 4.8 mmol/L (3.5-5.5)
[2023-03-20 07:53] VITALS: BP 122/72
[2023-03-20 13:10] LABS: Influenza A, PCR NEGATIVE (NEGATIVE); Influenza B, PCR NEGATIVE (NEGATIVE); Resp Syncytial Virus, PCR NEGATIVE (NEGATIVE); SARS-Cov-2 (COVID-19) PCR, MMC NEGATIVE (NEGATIVE)
[2023-03-20 15:49] VITALS: BP 149/85
[2023-03-20 16:11] LABS: Vancomycin, Trough 10.7 ug/mL (5.0-10.0)
--- NOTE | 2023-03-20 18:21 | NUR ---
SHIFT SUMMARY PT SATING IN THE 90S ON 6L O2 VIA NC. COUGHING A LOT WITH PLENTY OF RED SPUTUM. SUCTION AT BEDSIDE. MD AWARE OF THIS. COVID/FLUA&B/RSV NEGATIVE. PT AMBULATING TO THE BATHROOM THIS AFTERNOON. PURE WIK LEAKED MID DAY AND HAS BEEN REMOVED SINCE. PT FEELS CONSTIPATED. MD NOTIFIED OF NO BM FOR 5-6 DAYS. BOWEL CARE ORDERED AND TO START TONIGHT. NO OTHER ACUTE CHANGES IN ASSESSMENT AT THIS TIME. VS REVIEWED. [facility]. DENIES OTHER NEEDS AT THIS TIME.
[2023-03-20 20:37] VITALS: BP 145/87
[2023-03-21 03:59] VITALS: BP 143/86
[2023-03-21 04:55] LABS: BASOPHILS ABSOLUTE AUTO 0.01 K/mm3 (0.00-0.23); BASOPHILS PERCENT AUTO 0 % (0-2); EOSINOPHILS PERCENT AUTO 0 % (0-6); Hemoglobin 11.3 g/dL (11.5-16.0); IMMATURE GRAN ABSOLUTE AUTO 0.21 K/mm3 (0.00-0.10); IMMATURE GRAN PERCENT AUTO 2 % (0-1); LYMPHOCYTES ABSOLUTE AUTO 0.57 K/mm3 (0.84-5.20); LYMPHOCYTES PERCENT AUTO 4 % (21-46); MONOCYTES ABSOLUTE AUTO 0.21 K/mm3 (0.16-1.47); MONOCYTES PERCENT AUTO 2 % (4-13); Mean Corpuscular HGB 29.3 pg (26.0-34.0); Mean Corpuscular HGB Conc 31.4 g/dL (31.5-36.5); Mean Corpuscular Volume 93 fL (80-100); Mean Platelet Volume 9.7 fL (9.1-12.4); NEUTROPHILS ABSOLUTE AUTO 12.92 K/mm3 (1.96-9.15); NEUTROPHILS PERCENT AUTO 93 % (41-73); Platelet Count 197 K/mm3 (150-400); RDW Coefficient Variation 14.4 % (11.7-14.2); Red Blood Cell Count 3.86 M/mm3 (3.80-5.20); White Blood Cell Count 13.92 K/mm3 (4.00-11.30)
[2023-03-21 05:19] LABS: Albumin, Blood 2.5 g/dL (3.4-5.0); Albumin/Globulin Ratio 0.6 (0.8-1.8); Bilirubin, Total 0.3 mg/dL (0.1-1.0); Bun/Creatinine Ratio 26.2 (12.0-20.0); Calcium, Blood 8.6 mg/dL (8.5-10.1); Creatinine, Blood 1.03 mg/dL (0.40-1.00); Globulin, Blood 3.9 g/dL (2.2-4.0); Potassium, Blood 5.3 mmol/L (3.5-5.5); Total Protein, Blood 6.4 g/dL (6.4-8.2)
--- NOTE | 2023-03-21 06:19 | NUR ---
SHIFT SUMMARY PT IS PLEASANT AND COOPERATIVE. PT STS THAT SHE FEEL BETTER THAN SHE DID THE DAY BEFORE. PT CONTINUES TO BE MEDICATED FOR HER ANXIETY WITH ATIVAN. PT IV STARTED LEAKING AND A NEW IV IN LEFT FA WAS STARTED. PT GETTING VANCO AT THIS TIME. PT STILL HAS NOT HAD A BM, BUT HAS GAS. CALL LIGHT IS WITHIN HER REACH.
--- NOTE | 2023-03-21 07:18 | NUR ---
ASSUMED CARE: PT RESTING IN BED. CURRENTLY ON 6L O2. AWAKES WHEN STAFF ARE AT BEDSIDE. NO ACUTE NEEDS OR CONCERNS AT THIS TIME.
[2023-03-21 07:42] VITALS: BP 150/93
--- NOTE | 2023-03-21 11:02 | NUR ---
CALL TO DR GILMAN DUE TO PT CONTINUING TO ASK FOR ANXIETY MEDS DUE TO FEELING SOB. ATIVAN IV HAS BEEN GIVEN ONCE THIS SHIFT AND PT HAS ASKED EVERY 2 HOURS. STATES TO START PO BUSPAR AND WILL COME DISCUSS FURTHER WITH PT DUE TO WANTING TO SEND HER HOME IN THE NEXT DAY OR 2 AND DOES NOT WANT TO CAUSE RESPIRATORY DEPRESSION. PT AWARE AND AGREEABLE TO THIS PLAN
--- NOTE | 2023-03-21 12:16 | NUR ---
PT REQUESTING SAP BPC DEVELOPER. CALL TO NURSING EM PHYSICIAN TO LET THEM KNOW THAT IT IS NOT EMERGENT BUT IF SAP BPC DEVELOPER IS CALLED TO ALSO SEND THEM TO [phone].
[2023-03-21 14:32] VITALS: BP 139/88
--- NOTE | 2023-03-21 17:58 | NUR ---
SHIFT SUMMARY: PT REMAINS ON 6L O2 VIA NC. MEDICATION CHANGES FOR ANXIETY TODAY. PLANS TO DC IN NEXT DAY OR 2. PT'S CAME TO VISIT THIS SHIFT. NO ACUTE NEEDS OR CONCERNS AT THIS TIME.
[2023-03-21 20:01] VITALS: BP 149/95
[2023-03-22 02:46] VITALS: BP 131/66
--- NOTE | 2023-03-22 04:38 | NUR ---
SHIFT SUMMARY PT HAS BEEN SLEEPING MUCH OF THE SHIFT. PT HAS HAD NO COMPLAINTS. PT CONTINUES TO HAVE ARNOLD FOR PEACE OF MIND AND COMFORT WHILE SHE SLEEPS. OUTPUT IS GOOD. PT HAS CALL LIGHT WITHIN HER REACH.
[2023-03-22 05:03] LABS: BASOPHILS ABSOLUTE AUTO 0.03 K/mm3 (0.00-0.23); BASOPHILS PERCENT AUTO 0 % (0-2); EOSINOPHILS PERCENT AUTO 0 % (0-6); Hematocrit 36.4 % (33.0-51.0); Hemoglobin 11.7 g/dL (11.5-16.0); IMMATURE GRAN ABSOLUTE AUTO 0.25 K/mm3 (0.00-0.10); IMMATURE GRAN PERCENT AUTO 2 % (0-1); LYMPHOCYTES ABSOLUTE AUTO 0.97 K/mm3 (0.84-5.20); LYMPHOCYTES PERCENT AUTO 6 % (21-46); MONOCYTES ABSOLUTE AUTO 0.94 K/mm3 (0.16-1.47); MONOCYTES PERCENT AUTO 6 % (4-13); Mean Corpuscular HGB 29.8 pg (26.0-34.0); Mean Corpuscular HGB Conc 32.1 g/dL (31.5-36.5); Mean Corpuscular Volume 93 fL (80-100); Mean Platelet Volume 10.2 fL (9.1-12.4); NEUTROPHILS ABSOLUTE AUTO 13.03 K/mm3 (1.96-9.15); NEUTROPHILS PERCENT AUTO 86 % (41-73); Platelet Count 220 K/mm3 (150-400); RDW Coefficient Variation 14.3 % (11.7-14.2); RDW Standard Deviation 48.8 fL (35.1-46.3); Red Blood Cell Count 3.93 M/mm3 (3.80-5.20); White Blood Cell Count 15.22 K/mm3 (4.00-11.30)
[2023-03-22 05:30] LABS: Albumin, Blood 2.6 g/dL (3.4-5.0); Albumin/Globulin Ratio 0.7 (0.8-1.8); Bilirubin, Total 0.3 mg/dL (0.1-1.0); Bun/Creatinine Ratio 29.4 (12.0-20.0); Calcium, Blood 8.9 mg/dL (8.5-10.1); Creatinine, Blood 1.02 mg/dL (0.40-1.00); Globulin, Blood 3.7 g/dL (2.2-4.0); Potassium, Blood 5.3 mmol/L (3.5-5.5); Total Protein, Blood 6.3 g/dL (6.4-8.2)
[2023-03-22 07:29] VITALS: BP 123/74
--- NOTE | 2023-03-22 11:02 | NUR ---
AM NOTE: PATIENT ALERT AND ORIENTED X4. ANXIOUS WHEN COUGHING AT TIMES. USING CALL LIGHT FOR NEEDS. MOVING ALL EXTREMITIES EQUALLY. DENIES PAINS. PERRLA, WEARING GLASSES. COMPLAINS OF SORE THROAT AND FEELING CONGESTED/EAR ACHE. DR. CARTER AWARE AND IN TO ASSESS PATIENT. ORDERS FOR PO [place]STATIN SWISH AND SWALLOW TID. ORDERS IN PLACE. PATIENT HAS UPPER DENTURES AT HOME. ON 6L NASAL CANNULA SATING MID 90'S FREQUENT LOOSE/HARSH COUGH WITH INTERMIT BLOOD TINGED SPUTUM. EVEN AND UNLABORED RESPIRATIONS. NO TELE. BP STABLE. NO SIGNS OF SWELLING. IV SALINE LOCKED. SC HEPARIN GIVEN THIS AM. DENIES CHEST PAIN/PRESSURE/PALPITATIONS. BOWEL TONES PRESENT. DENIES ABDOMINAL PAIN/NAUSEA. EATING AND VOIDING WNL. USING PUREWICK ON NOC SHIFT. ATTENDS IN PLACE. UP TO BATHROOM X1 THIS AM AND PATIENT HAD BOWEL MOVEMENT. CALL LIGHT IN REACH. CARLY AT BEDSIDE. PATIENT SITTING IN RECLINER, DENIES NEEDS AT THIS TIME.
[2023-03-22 15:24] VITALS: BP 133/81
--- NOTE | 2023-03-22 16:19 | NUR ---
DR. CARTER IN TO DISCUSS PLAN OF CARE WITH PATIENT AND PATIENT CARLY. PATIENT RECEIVED BREATHING TREATMENT THIS AFTERNOON. VITAL SIGNS REMAINS STABLE. PATIENT MOVING BACK AND FORTH BETWEEN CHAIR AND BED. DENIES PAIN/NEEDS AT THIS TIME
--- NOTE | 2023-03-22 18:09 | NUR ---
SHIFT SUMMARY: NO ACUTE CHANGES. PATIENT REMAINS ALERT AND ORIENTED. UP TO RECLINER FOR MEALS. REMAINS ON 6L NASAL CANNULA SATING MID 90'S. PATIENT COUGHING LESS THIS EVENING. VITAL SIGNS REMAINS STABLE. DENIES PAIN. UP TO BATHROOM WITH ONE PERSON ASSIST AND FWW. EATING WNL. SITTING UP IN RECLINER AT THIS TIME WATCHING TV, CALL LIGHT IN REACH. DENIES NEEDS.
[2023-03-22 20:02] VITALS: BP 128/87
[2023-03-23 02:59] VITALS: BP 110/71
[2023-03-23 04:49] LABS: BASOPHILS ABSOLUTE AUTO 0.04 K/mm3 (0.00-0.23); BASOPHILS PERCENT AUTO 0 % (0-2); EOSINOPHILS ABSOLUTE AUTO 0.13 K/mm3 (0.00-0.68); EOSINOPHILS PERCENT AUTO 1 % (0-6); Hematocrit 36.4 % (33.0-51.0); Hemoglobin 11.3 g/dL (11.5-16.0); IMMATURE GRAN ABSOLUTE AUTO 0.26 K/mm3 (0.00-0.10); IMMATURE GRAN PERCENT AUTO 3 % (0-1); LYMPHOCYTES ABSOLUTE AUTO 2.33 K/mm3 (0.84-5.20); LYMPHOCYTES PERCENT AUTO 22 % (21-46); MONOCYTES ABSOLUTE AUTO 0.86 K/mm3 (0.16-1.47); MONOCYTES PERCENT AUTO 8 % (4-13); Mean Corpuscular HGB 29.4 pg (26.0-34.0); Mean Corpuscular Volume 95 fL (80-100); Mean Platelet Volume 9.6 fL (9.1-12.4); NEUTROPHILS ABSOLUTE AUTO 6.89 K/mm3 (1.96-9.15); NEUTROPHILS PERCENT AUTO 66 % (41-73); Platelet Count 198 K/mm3 (150-400); RDW Coefficient Variation 14.7 % (11.7-14.2); Red Blood Cell Count 3.85 M/mm3 (3.80-5.20); White Blood Cell Count 10.51 K/mm3 (4.00-11.30)
[2023-03-23 05:20] LABS: Albumin, Blood 2.5 g/dL (3.4-5.0); Anion Gap 0 mmol/L (6-16); Blood Urea Nitrogen 28 mg/dL (8-24); Bun/Creatinine Ratio 25.2 (12.0-20.0); CO2, Blood 35 mmol/L (21-32); Calcium, Blood 8.8 mg/dL (8.5-10.1); Chloride, Blood 104 mmol/L (98-108); Creatinine, Blood 1.11 mg/dL (0.40-1.00); Glomerular Filtration Rate 54 (60-); Glucose, Blood 125 mg/dL (70-99); Magnesium, Blood 2.2 mg/dL (1.6-2.4); Phosphorus, Blood 2.8 mg/dL (2.5-4.9); Potassium, Blood 4.9 mmol/L (3.5-5.5); Sodium, Blood 139 mmol/L (136-145)
[2023-03-23 07:48] VITALS: BP 131/84
--- NOTE | 2023-03-23 08:55 | NUR ---
Patient had a good rest after receiving ativan 2mg at 2220. Purwik in place. Did ambulate to BR x1 with walker and O2 6 liters without difficulty at beginning of shift.
--- NOTE | 2023-03-23 12:02 | NUR ---
Spiritual Care | Nurse request Nurse requested Pt. be seen because she wanted to talk about "cheondoism" considerations. When I arrived the Pt. welcomed my visit. The Pt. displayed evidence of being anxious about her potential hospice diagnosis. Listened with empathy and a calming presence. Pt. is interested in recieving help from her nondenominational with regard to will and estate planning. Again. listened to the Pt. This wireless sales manager agreed to contact the Pts. nondenominational about meeting with someone. Prayed with Pt. Pt. verbalized gratitude for the spiritual care visit and assistance.
--- NOTE | 2023-03-23 12:16 | NUR ---
ANXIOUS WHEN SPEAKING TO MD ABOUT HOSPICE. PT BECAME VERY ANXIOUS WHEN SPEAKING TO DR. CARTER ABOUT THE POSSIBILITY OF GOING HOME ON HOSPICE. PT BECAME SOB, PRN ATIVAN ADMINSTERED AND RT REQUESTED FOR BREATHING TREATMENT. PALLIATIVE CARE TO FOLLOW UP WITH THE PATIENT TODAY.
[2023-03-23 15:44] VITALS: BP 161/97
--- NOTE | 2023-03-23 17:53 | NUR ---
SHIFT SUMMARY PT TITRATED DOWN TO 4L O2 VIA NC WHEN WORKING WITH PHYSICAL THERAPY. PT SATING AT 92% AFTER AMBULATING TO THE BATHROOM AND BACK. PT THEN STARTED TO COMPLAIN OF SOB WHEN DR. CARTER WAS IN ROOM EARLIER TODAY. DR. CARTER BROUGHT UP THE IDEA OF HOSPICE TODAY, WHICH THE PATIENT RESPONDED BY STATING SHE COULDNT BREATHE AND DIDNT WANT TO . O2 INCREASED BACK TO 6L O2, BREATHING TREATMENT REQUESTED, AND ATIVAN GIVEN PATIENT APPEARED TO BE VERY ANXIOUS. PT TALKED BACK DOWN AND WAS CALM. TAHIR CALLED FOR PRAYER. PALLIATIVE CARE IN TO EDUCATED THE PATIENT MORE ON HOSPICE THIS AFTERNOON WHEN HER SPOUSE ARRIVED. PT AMBULTING TO THE BATHROOM OR USING BSC TO URINATE TODAY. NO OTHER ACUTE CHANGES IN ASSESSMENT AT THIS TIME. VS REVIEWED. CALL LIGHT IN REACH. DENIES OTHER NEEDS AT THIS TIME.
--- NOTE | 2023-03-23 18:00 | NUR ---
Spiritual Care Support | Nurse/Pt. Request Pt. verbalized a request to be able to talk to a solution sales senior executive about her will. After doing some research this address change clerk left a "non-urgent" message with Father Suresh's answering service. Pt. verbalized satisfaction that an attempt was made. Pt. displayed evidence of engagement and awareness. Prayed with the Pt. Pt.verbalized gratitude for the spiritual care visit and the update.
--- NOTE | 2023-03-23 18:13 | NUR ---
Met with patient and . Review of her symptoms and prognosis. Pt had many questions about hospice and plan of care. We reviewed symptoms and end of life care. She want to be home but here are some struggles. They want to leave their house to the sabianist. Nicolettemarvel states their children are on drugs and alcoholics. Pt more understaning of hospice. She wants to speak to a sleeve fixer updated chaplian. Went to chapel and lit a candle for her and sent her the picture. claled doctor about her air traping and burden of ventilation. Will review prn medications.
[2023-03-23 20:09] VITALS: BP 158/95
[2023-03-24 02:55] VITALS: BP 129/82
--- NOTE | 2023-03-24 04:19 | NUR ---
SHIFT SUMMARY: PT IS ALERT AND ORIENTED. PT IS COOPERATIVE WITH CARE. PT IS ANXIOUS AT TIMES, MEDICATING WITH PRN ATIVAN WHEN NECESSARY. PT IS A STANDBY ASSIST. PT DENIES PAIN, NAUSEA, VOMITING, AND SOB. NO ACUTE EVENTS OVERNIGHT. BED IN LOW POSITION, CALL LIGHT WITHIN REACH. WILL CONTINUE TO MONITOR.
[2023-03-24 08:11] VITALS: BP 132/86
[2023-03-24 18:35] VITALS: BP 126/66
--- NOTE | 2023-03-24 18:37 | NUR ---
SHIFT SUMMARY PLAN TO DISCHARGE HOME WITH HOSPICE. DC PLANNING WORKING ON THIS. PT MEDICATED FOR ANXIETY TWICE THIS SHIFT. PT HAS SOCIAL ISSUES AND GTO IN AN AGRUMENT WITH HER THIS AFTERNOON. PT NOW UPSET IN ROOM. COOPERATIVE AND PLEASANT WITH CARE T/O SHIFT. PT COMPLIANT WITH LEAVING PURE WIK OUT DURING THE DAY. 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 NO IV ACCESS ORDER OBTAINED AND IV REMOVED. NO OTHER ACUTE CHAGNES IN ASSESSMENT AT THIS TIME. VS REVIEWED. CALL LIGHT IN REACH.
--- NOTE | 2023-03-24 19:05 | NUR ---
RECEIVED BEDSIDE REPORT FROM LYNETTE RN. PT IN BED. A/O. TALKING TO STAFF. NO NEEDS AT THIS TIME. CURRENTLY ON 6L HF. WILL CONTINUE TO PROVIDE CARE T/O SHIFT. CALL LT IN REACH.
[2023-03-24 20:24] VITALS: BP 151/101
[2023-03-24 20:25] VITALS: BP 150/87
[2023-03-25 03:13] VITALS: BP 140/74
--- NOTE | 2023-03-25 03:45 | NUR ---
ASSUMED CARE OF PT.
--- NOTE | 2023-03-25 04:11 | NUR ---
SHIFT SUMMARY: NO ACUTE CHANGES. PT HAS BEEN USING CALL APPROPRIATELY. ABLE TO STATE NEEDS APPROPRIATELY. A/O. ON 6L VIA DC. REQUESTED PURWICK FOR BEDTIME. HAS BEEN GOING TO THE BATHROOM INDEPENDENTLY DURING THE DAY. TYLENOL GIVEN FOR CRAMPING PAIN IN RIGHT FOOT. TOOK MEDS WITHOUT DIFFICULTY. PER PATIENT PLAN IS TO DISCHARGE WITH HOSPICE SERVICES. NO PRN ATIVAN GIVEN THIS SHIFT. WILL CONTINUE TO PROVIDE CARE UNTIL SHIFT REPORT TO ONCOMING NURSE.
[2023-03-25 08:23] VITALS: BP 124/90
--- NOTE | 2023-03-25 12:03 | NUR ---
Spiritual Care Visit. Pt. is resting but responds when I come to bedside. Pt. is pleasant. Pt. verbalized that Father Suresh had been into see her, and that the visit brought her peace of mind. Re-established rapport. Prayed with Pt. Pt. verbalized gratitude for the spiritual care visit.
[2023-03-25 16:54] VITALS: BP 131/96
--- NOTE | 2023-03-25 17:30 | NUR ---
SHIFT SUMMARY PT IS AOX4, INDEPENDENT IN THE ROOM. SHE IS ON 6L HIGH FLOW AND SHE WILL GO HOME WITH THAT ORDER. PLAN IS FOR HER TO GO HOME ON HOSPICE WHEN IS TBD PER THE CARE MANAGEMENT NOTE. MEDICATED FOR ANXIETY PER THE EMAR. PT WAS TEARFUL THIS AFTERNOON, TALKING ABOUT GOING HOME AND THE CARE SHE WILL RECEIVE. THERAPUTIC COMMUNICATION TECHNIQUES UTILIZED AND SHE CALMED DOWN. THE PROVIDER CAME AND DISCUSSED THE TREATMENT PLAN WITH HER THIS EVENING TOO. NO COMPLAINTS OF CP OR PRESSURE. CALL LIGHT WITHIN REACH, BED IN THE LOWEST POSITION. WILL REPORT TO ONCOMING NURSE.
[2023-03-25 20:01] VITALS: BP 147/89
[2023-03-26 05:27] VITALS: BP 151/88
--- NOTE | 2023-03-26 06:11 | NUR ---
Rn shift summary: PT starts out by saying she does not want to be a DNR, she said had talked with the Doctor and states that she did not say she wanted to be a DNR. She was made a full code per her and her husbands wishes. Patient is on 5 liters O2. She self suctions. She has a purwik at night, she had 550 ml of dk yellow urine out. Pt has a no IV access order. Pt was medicated with tylenol for generalized discomfort and has rested well. Pt did not receive any ativan this shift with no c/o anxiety. Plan was for patient to be working toward home with hospice when house is ready with equiptment. May need further understanding of what hospice is. Call light is in reach and pt is able to use appropriately.
[2023-03-26 07:56] VITALS: BP 129/80
[2023-03-26] MEDS ORDERED: Buspirone HCl15 MG PO (14:36)
[2023-03-26] MEDS ORDERED: DELTASONE20 MG PO (14:37)
--- NOTE | 2023-03-26 18:00 | NUR ---
DISCHARGE INSTRUCTIONS DISCUSSED WITH PT AND PRINTED COPY PROVIDED. ALL PERSONAL BELONGINGS SENT HOME. PT TRANSPORTED HOME VIA [facility]. [facility].
== END 2023-03-26 17:58 | disposition hospice, home (50) | DRG 915 ==
LOC: ER 15:44 → ICUE 17:08 → MEDS 03-17 19:05
PROVIDERS: Emergency Medicine; Internal Medicine; ADMIT Family Medicine
PROC: 5A1945Z Respiratory Ventilation, 24-96 Consecutive Hours (ICD-10-PCS; principal; 2023-03-14)
PROC: 0BH17EZ Insertion of Endotracheal Airway into Trachea, Via Natural or Artificial Opening (ICD-10-PCS; 2023-03-14)
PROC: 30233K1 Transfusion of Nonautologous Frozen Plasma into Peripheral Vein, Percutaneous Approach (ICD-10-PCS; 2023-03-14)
PROC: 5A0935A Assistance with Respiratory Ventilation, Less than 24 Consecutive Hours, High Flow/Velocity Cannula (ICD-10-PCS; 2023-03-17)
DX: T78.3XXA Angioneurotic edema, initial encounter (principal); J18.9 Pneumonia, unspecified organism; J96.21 Acute and chronic respiratory failure with hypoxia; N17.9 Acute kidney failure, unspecified; R04.2 Hemoptysis; I50.32 Chronic diastolic (congestive) heart failure; J44.1 Chronic obstructive pulmonary disease with (acute) exacerbation; J44.0 Chronic obstructive pulmonary disease with (acute) lower respiratory infection; Z66 Do not resuscitate; I11.0 Hypertensive heart disease with heart failure; I25.10 Atherosclerotic heart disease of native coronary artery without angina pectoris; E78.5 Hyperlipidemia, unspecified; E03.9 Hypothyroidism, unspecified; E11.9 Type 2 diabetes mellitus without complications; F41.9 Anxiety disorder, unspecified; F32.A Depression, unspecified; J20.9 Acute bronchitis, unspecified; B96.3 Hemophilus influenzae [H. influenzae] as the cause of diseases classified elsewhere; N32.81 Overactive bladder; G47.00 Insomnia, unspecified; K59.00 Constipation, unspecified; E05.00 Thyrotoxicosis with diffuse goiter without thyrotoxic crisis or storm; E83.39 Other disorders of phosphorus metabolism; T46.4X5A Adverse effect of angiotensin-converting-enzyme inhibitors, initial encounter; R04.0 Epistaxis; R91.1 Solitary pulmonary nodule; Z88.5 Allergy status to narcotic agent; Z91.040 Latex allergy status; Z79.51 Long term (current) use of inhaled steroids; Z79.82 Long term (current) use of aspirin; Z79.01 Long term (current) use of anticoagulants; Z79.899 Other long term (current) drug therapy; Z79.890 Hormone replacement therapy; Z98.890 Other specified postprocedural states; Z90.49 Acquired absence of other specified parts of digestive tract; Z96.643 Presence of artificial hip joint, bilateral; Z87.891 Personal history of nicotine dependence; Z88.8 Allergy status to other drugs, medicaments and biological substances; Z79.2 Long term (current) use of antibiotics
CPT/HCPCS: 0241U; 31500; 31720; 36415; 51702; 71045; 71260; 80048; 80053; 80069; 80202; 82947; 83735; 83880; 84100; 84145; 84484; 85014; 85018; 85025; 85610; 86900; 86901; 87070; 87077; 87185; 87205; 93005; 93010; 94002; 94003; 94640; 94664; 94760; 94762; 96374; 97112; 97116; 97161; 97166; 97530; 97535; 99285-25; A9270; J0330; J0696; J1200; J1644; J1815; J2060; J2250; J2405; J2704; J2930; J3010; J3370; J7050; J7060; J7120; J7512; P9059; Q9967

== ENCOUNTER → 2023-09-15 | Outpatient (CLI) | payer MEDICARE, OTHER ==
[~2023-09-15] MED LIST changes: +Buspirone HCl15 MG PO; +DELTASONE20 MG PO; +MELATONIN5 M1 PO
[2023-09-19 16:26] LABS: 11-NOR-9-CARBOXY-THC,URN,QUANT 217 ng/mL
== END | disposition home or self-care (01) ==
LOC: LAB SHORT 15:08 → LAB 15:08
PROVIDERS: Family Medicine
DX: Z51.81 Encounter for therapeutic drug level monitoring (principal); Z79.899 Other long term (current) drug therapy
CPT/HCPCS: G0480